=== PATIENT | male | born 1945 | race Caucasian/White ===

== ENCOUNTER 2019-07-22 06:46 | Outpatient (RCR) | payer MEDICARE, SELFPAY ==
--- NOTE | 2019-06-24 | CT_ITS ---
Radation Therapy Planning CT images; total exam DLP: 1029.40 mGy-cm MTDD
--- NOTE | 2019-07-02 13:12 | ONCRAD TMN_ITS ---
Radiation Oncology Weekly Treatment Management Patient: Geovanny James MR#: [id number] : 1945> Age: 73> Sex: Male Dictated by: Dr. Armand Caldera Date of Service: 07/02/2019 Referring Physician(s) : Primary Diagnosis: C61 - Malignant neoplasm of prostate, Diagnosed 01/16/2019 (Active) Stage X, T1c, N0, M0 Radiotherapy to date: Course: Prostate2019, Treatment Site: [id number], Ref. ID: [id number], Energy: 15X/6X, Dose/Fx (cGy): 200, #Fx: , Dose Correction (cGy): 0, Total Dose (cGy): 400, Start Date: 07/01/2019, End Date: 07/02/2019, Elapsed Days: 1 Current Complaints/Interval History: None Current Medications: Losartan Potassium, metFORMIN HCl ER (MOD), vitamin B Complex, vitamin D3. Allergies: No Known Allergies Vital Signs: Performed on 07/02/2019 12:07 PM Weight - 208 lbs, Temperature - 97.6 f, Pulse - 90, Respiration - 16, O2 Sat - 100 %, Pain - 0 and BP - 143/ 80 mm(hg)(high/). Physical Exam: Appears stable, no skin erythema or desquamation. Performance Status: 0 - Fully active, able to carry on all predisease activities without restrictions. (ECOG) Imaging: No new diagnostic imaging was performed since the last weekly treatment visit. All radiation therapy related imaging (including but not limited to kV, MV, and CBCT generated images) was reviewed. Appropriate changes, if any, were made to assure accurate target localization. Impression/Plan: Tolerating treatment well with expected side effects. Continue treatment as planned. CPT: 99354 Signed by: Dr. Armand Caldera>07/02/2019 1:09:48 PM <<Signature on File>>
--- NOTE | 2019-07-08 10:41 | ONCRAD TMN_ITS ---
Radiation Oncology Weekly Treatment Management Patient: Geovanny James MR#: [id number] : 1945> Age: 73> Sex: Male Dictated by: Dr. Michael Contreras Date of Service: 07/08/2019 Referring Physician(s) : Dr. Sin Briggs Primary Diagnosis: C61 - Malignant neoplasm of prostate, Diagnosed 01/16/2019 (Active) Stage X, T1c, N0, M0 Radiotherapy to date: Course: Prostate2019, Treatment Site: [id number], Ref. ID: [id number], Energy: 15X/6X, Dose/Fx (cGy): 200, #Fx: , Dose Correction (cGy): 0, Total Dose (cGy): 1,200, Start Date: 07/01/2019, Elapsed Days: 7 Current Complaints/Interval History: Mr. James is a little over 1 week into his course of radiation therapy. He is doing extremely well. He has not experienced any fatigue at all. He has no bowel complaints. He is on a low fiber diet. He is aware to use Imodium AD if he develops diarrhea. He has not developed any troublesome bladder symptoms. He will let us know if they develop. He is complimentary of the staff. No change in treatment plan. Current Medications: Losartan Potassium, metFORMIN HCl ER (MOD), saw [place], vitamin B Complex, vitamin D3. Allergies: No Known Allergies Vital Signs: Physical Exam: Appears stable, no skin erythema or desquamation. Performance Status: 0 - Fully active, able to carry on all predisease activities without restrictions. (ECOG) Lab: None pending in Radiation Oncology. Test performed on 04/14/2019 8:41 AM Hemoglobin A1C - 6.1 % (high) and PSA - 5.31 ng/ml (high). Imaging: No new diagnostic imaging was performed since the last weekly treatment visit. All radiation therapy related imaging (including but not limited to kV, MV, and CBCT generated images) was reviewed. Appropriate changes, if any, were made to assure accurate target localization. Impression/Plan: Tolerating treatment well with expected side effects. Continue treatment as planned. CPT: 92525 Signed by: Dr. Michael Contreras>07/08/2019 10:39:59 AM <<Signature on File>>
--- NOTE | 2019-07-16 11:32 | ONCRAD TMN_ITS ---
Radiation Oncology Weekly Treatment Management Patient: Geovanny James MR#: [id number] : 1945> Age: 73> Sex: Male Dictated by: Dr. Dennis Contreras Date of Service: 07/16/2019 Referring Physician(s) : Dr. Sin Briggs Primary Diagnosis: C61 - Malignant neoplasm of prostate, Diagnosed 01/16/2019 (Active) Stage X, T1c, N0, M0 Radiotherapy to date: Course: Prostate2019, Treatment Site: [id number], Ref. ID: [id number], Energy: 15X/6X, Dose/Fx (cGy): 200, #Fx: , Dose Correction (cGy): 0, Total Dose (cGy): 2,400, Start Date: 07/01/2019, Elapsed Days: 15 Current Complaints/Interval History: Mr. James is 2-1/2 weeks into treatment. Overall he is doing well. He has a good appetite and denies fatigue. He has had no bowel problems. He has altered his diet according to the instruction sheet. I did discuss with him that he could be less strict on his diet as long as he does not have troublesome diarrhea. He is very obsessive-compulsive and prefers to follow the diet strictly. He does not have dysuria or nocturia. Bladder function is very good at this time. No questions. Continue according to plan. Current Medications: Losartan Potassium, metFORMIN HCl ER (MOD), saw [place], vitamin B Complex, vitamin D3. Allergies: No Known Allergies Vital Signs: Performed on 07/16/2019 10:22 AM BMI - 33.047 kg/m2 (high), Height - 67.00 in, Weight - 211.0 lbs, Temperature - 97.6 f, Pulse - 73, Respiration - 18, O2 Sat - 97 %, Pain - 0, Fatigue - 0 and BP - 154/ 88 mm(hg)(high/). Physical Exam: Appears stable, no skin erythema or desquamation. Performance Status: 0 - Fully active, able to carry on all predisease activities without restrictions. (ECOG) Lab: None pending in Radiation Oncology. Test performed on 04/14/2019 8:41 AM Hemoglobin A1C - 6.1 % (high) and PSA - 5.31 ng/ml (high). Imaging: No new diagnostic imaging was performed since the last weekly treatment visit. All radiation therapy related imaging (including but not limited to kV, MV, and CBCT generated images) was reviewed. Appropriate changes, if any, were made to assure accurate target localization. Impression/Plan: Tolerating treatment well with expected side effects. Continue treatment as planned. CPT: 22108 Signed by: Dr. Michael Contreras>07/16/2019 11:31:19 AM <<Signature on File>>
== END 2019-07-22 23:59 | disposition home or self-care (01) ==
LOC: ONCMED 06:46
PROVIDERS: Family Provider Internal Medicine; PCP Internal Medicine
DX: Z51.0 Encounter for antineoplastic radiation therapy (principal); C61 Malignant neoplasm of prostate
CPT/HCPCS: 77300; 77301; 77334; 77336; 77338; 77385

== ENCOUNTER 2019-08-21 06:50 | Outpatient (RCR) | payer MEDICARE, SELFPAY ==
--- NOTE | 2019-07-29 13:51 | ONCRAD TMN_ITS ---
Radiation Oncology Weekly Treatment Management Patient: Geovanny James MR#: [id number] : 1945> Age: 73> Sex: Male Dictated by: Dr. Cesar Bardales Date of Service: 07/29/2019 Referring Physician(s) : Dr. Sin Briggs Primary Diagnosis: C61 - Malignant neoplasm of prostate, Diagnosed 01/16/2019 (Active) Stage X, T1c, N0, M0 Radiotherapy to date: Course: Prostate2019,Treatment Site: [id number], Ref. ID: [id number], Energy: 15X/6X Dose/Fx (cGy): 200, #Fx: , Dose Correction (cGy): 0, Total Dose (cGy): 4,200, Start Date: 07/01/2019, Elapsed Days: 28 Current Complaints/Interval History: Current Medications: Losartan Potassium, metFORMIN HCl ER (MOD), saw [place], vitamin B Complex, vitamin D3. Allergies: No Known Allergies Vital Signs: Performed on 07/29/2019 10:54 AM BMI - 32.797 kg/m2 (high), Height - 67.00 in, Weight - 209.4 lbs, Temperature - 97.7 f, Pulse - 66, Respiration - 18, O2 Sat - 98 %, Pain - 0 and BP - 160/ 77 mm(hg)(high/). Physical Exam: Appears stable, no skin erythema or desquamation. Performance Status: 0 - Fully active, able to carry on all predisease activities without restrictions. (ECOG) Lab: None pending in Radiation Oncology. Test performed on 04/14/2019 8:41 AM Hemoglobin A1C - 6.1 % (high) and PSA - 5.31 ng/ml (high). Imaging: No new diagnostic imaging was performed since the last weekly treatment visit. All radiation therapy related imaging (including but not limited to kV, MV, and CBCT generated images) was reviewed. Appropriate changes, if any, were made to assure accurate target localization. Impression/Plan: Tolerating treatment well with expected side effects. Continue treatment as planned. CPT: 35331 Signed by: Dr. Cesar Bardales>07/29/2019 1:50:53 PM <<Signature on File>>
--- NOTE | 2019-08-05 10:55 | ONCRAD TMN_ITS ---
Radiation Oncology Weekly Treatment Management Patient: Geovanny James MR#: [id number] : 1945> Age: 73> Sex: Male Dictated by: Dr. Cesar Bardales Date of Service: 08/05/2019 Referring Physician(s) : Dr. Sin Briggs Primary Diagnosis: C61 - Malignant neoplasm of prostate, Diagnosed 01/16/2019 (Active) Stage X, T1c, N0, M0 Radiotherapy to date: Course: Prostate2019 Treatment Site: [id number], Ref. ID: [id number], Energy: 15X/6X, Dose/Fx (cGy): 200, #Fx: , Dose Correction (cGy): 0, Total Dose (cGy): 5,200, Start Date: 07/01/2019, Elapsed Days: 35 Current Complaints/Interval History: Constitutional Denies lack of appetite, fatigue, fever and night sweats. Gastrointestinal Denies constipation and diarrhea. Has no rectal bleeding or irritation Genitourinary (M) Denies dysuria, frequency, nocturia and urgency. Current Medications: Losartan Potassium, metFORMIN HCl ER (MOD), saw [place], vitamin B Complex, vitamin D3. Allergies: No Known Allergies Vital Signs: Performed on 08/05/2019 10:34 AM BMI - 32.045 kg/m2 (high), Height - 67.00 in, Weight - 204.6 lbs, Temperature - 97.3 f, Pulse - 72, Respiration - 18, O2 Sat - 98 %, Pain - 0 and BP - 152/ 83 mm(hg)(high/). Physical Exam: Appears stable, no skin erythema or desquamation. Performance Status: 0 - Fully active, able to carry on all predisease activities without restrictions. (ECOG) Lab: None pending in Radiation Oncology. Test performed on 04/14/2019 8:41 AM Hemoglobin A1C - 6.1 % (high) and PSA - 5.31 ng/ml (high). Imaging: No new diagnostic imaging was performed since the last weekly treatment visit. All radiation therapy related imaging (including but not limited to kV, MV, and CBCT generated images) was reviewed. Appropriate changes, if any, were made to assure accurate target localization. Impression/Plan: Tolerating treatment well with expected side effects. Continue treatment as planned. CPT: 44499 Signed by: Dr. Cesar Bardales>08/05/2019 10:54:40 AM <<Signature on File>>
--- NOTE | 2019-08-13 14:31 | ONCRAD TMN_ITS ---
Radiation Oncology Weekly Treatment Management Patient: Geovanny James MR#: [id number] : 1945> Age: 74> Sex: Male Dictated by: Que Guido Date of Service: 08/13/2019 Referring Physician(s) : Dr. Sin Briggs Primary Diagnosis: C61 - Malignant neoplasm of prostate, Diagnosed 01/16/2019 (Active) Stage X, T1c, N0, M0 Radiotherapy to date: Course: Prostate2019 Treatment Site: [id number], Ref. ID: [id number], Energy: 15X/6X, Dose/Fx (cGy): 200, #Fx: , Dose Correction (cGy): 0, Total Dose (cGy): 5,400, Start Date: 07/01/2019, End Date: 08/06/2019, Elapsed Days: 36 Treatment Site: [id number], Ref. ID: [id number], Energy: 15X/6X, Dose/Fx (cGy): 200, #Fx: , Dose Correction (cGy): 0, Total Dose (cGy): 1,000, Start Date: 08/07/2019, Elapsed Days: 6 Current Complaints/Interval History: He notes weak urinary stream since last week. Only occasional nocturia. No dysuria. Bowels ok Constitutional Denies lack of appetite, fatigue, fever and night sweats. Gastrointestinal Denies constipation and diarrhea. Genitourinary (M) Complains of nocturia gets up 1 to 2 times per night. Denies dysuria but has a tingling sensation, hematuria and urgency. Has a weak urinary stream Current Medications: Losartan Potassium, metFORMIN HCl ER (MOD), saw [place], vitamin B Complex, vitamin D3. Allergies: No Known Allergies Vital Signs: Performed on 08/13/2019 10:38 AM BMI - 32.296 kg/m2 (high), Height - 67.00 in, Weight - 206.2 lbs, Temperature - 98.5 f, Pulse - 74, Respiration - 18, O2 Sat - 100 %, Pain - 0 and BP - 135/ 69 mm(hg). Physical Exam: Appears stable, no skin erythema or desquamation. Performance Status: 0 - Fully active, able to carry on all predisease activities without restrictions. (ECOG) Lab: None pending in Radiation Oncology. Test performed on 04/14/2019 8:41 AM Hemoglobin A1C - 6.1 % (high) and PSA - 5.31 ng/ml (high). Imaging: No new diagnostic imaging was performed since the last weekly treatment visit. All radiation therapy related imaging (including but not limited to kV, MV, and CBCT generated images) was reviewed. Appropriate changes, if any, were made to assure accurate target localization. Impression/Plan: Tolerating treatment well with expected side effects. Continue treatment as planned. Will add Flomax 0.4 mg after breakfast. Will call in to [facility] in [facility]. CPT: 21005 Signed by: Dr. Que Guido>08/13/2019 2:29:47 PM <<Signature on File>>
--- NOTE | 2019-08-19 14:07 | ONCRAD TMN_ITS ---
Radiation Oncology Weekly Treatment Management Patient: Geovanny James MR#: [id number] : 1945> Age: 74> Sex: Male Dictated by: Dr. Que Guido Date of Service: 08/19/2019 Referring Physician(s) : Dr. Sin Briggs Primary Diagnosis: C61 - Malignant neoplasm of prostate, Diagnosed 01/16/2019 (Active) Stage X, T1c, N0, M0 Radiotherapy to date: Course: Prostate2019, Treatment Site: [id number], Ref. ID: [id number], Energy: 15X/6X, Dose/Fx (cGy): 200, #Fx: , Dose Correction (cGy): 0, Total Dose (cGy): , 5,400, Start Date: 07/01/2019, End Date: 08/06/2019, Elapsed Days: 36 Treatment Site: [id number], Ref. ID: [id number], Energy: 15X/6X, Dose/Fx (cGy): 200, #Fx: , Dose Correction (cGy): 0, Total Dose (cGy): 1,800, Start Date: 08/07/2019, Elapsed Days: 12 Current Complaints/Interval History: No complaints. Decreased flow improved with Flomax. Now back to normal flow. No pain. Stable 1 x nocturia. Bladder full for treatment Constitutional Denies lack of appetite, fatigue, fever and night sweats. Gastrointestinal Denies constipation and diarrhea. No rectal bleeding or irritation Genitourinary (M) Complains of nocturia gets up about 1 to 2 times per night. Denies dysuria but has some tingling towards the scotum, frequency and urgency. Current Medications: Imodium A-D, losartan Potassium, metFORMIN HCl ER (MOD), saw [place], tamsulosin HCl, vitamin B Complex, vitamin D3. Allergies: No Known Allergies Vital Signs: Performed on 08/19/2019 10:31 AM BMI - 32.578 kg/m2 (high), Height - 67.00 in, Weight - 208.0 lbs, Temperature - 98.2 f, Pulse - 79, Respiration - 16, O2 Sat - 98 %, Pain - 0, Fatigue - 0 and BP - 155/ 78 mm(hg)(high/). Physical Exam: Appears stable, no skin erythema or desquamation. Performance Status: 0 - Fully active, able to carry on all predisease activities without restrictions. (ECOG) Lab: None pending in Radiation Oncology. Test performed on 04/14/2019 8:41 AM Hemoglobin A1C - 6.1 % (high) and PSA - 5.31 ng/ml (high). Imaging: No new diagnostic imaging was performed since the last weekly treatment visit. All radiation therapy related imaging (including but not limited to kV, MV, and CBCT generated images) was reviewed. Appropriate changes, if any, were made to assure accurate target localization. Impression/Plan: Tolerating treatment well with expected side effects. Continue treatment as planned. CPT: 75138 Signed by: Dr. Que Guido>08/19/2019 2:05:27 PM <<Signature on File>>
== END 2019-08-21 23:59 | disposition home or self-care (01) ==
LOC: ONCMED 06:50
PROVIDERS: Family Provider Internal Medicine; PCP Internal Medicine; Visit Provider Radiology Radiation Oncology
DX: Z51.0 Encounter for antineoplastic radiation therapy (principal); C61 Malignant neoplasm of prostate
CPT/HCPCS: 77300; 77336; 77338; 77385

== ENCOUNTER 2019-08-25 06:43 | Outpatient (RCR) | payer MEDICARE, SELFPAY | END 2019-09-21 23:59 | disposition home or self-care (01) | LOC: ONCMED 06:43 | PROVIDERS: Family Provider Internal Medicine; PCP Internal Medicine; Visit Provider Radiology Radiation Oncology | DX: Z51.0 Encounter for antineoplastic radiation therapy (principal); C61 Malignant neoplasm of prostate; I10 Essential (primary) hypertension; E11.9 Type 2 diabetes mellitus without complications | CPT/HCPCS: 77385 ==

== ENCOUNTER 2019-10-06 06:53 | Outpatient (RCR) | payer MEDICARE, SELFPAY ==
[2019-09-26 10:24] LABS: Prostate Specific Antigen 2.53 ng/mL (0-4)
--- NOTE | 2019-10-06 12:39 | ONCRAD EPV_ITS ---
Radiation Oncology Established Patient Visit Patient: Karmen MR#: [id number] : 1945> Age: 74> Sex: Male> Dictated by: Dr. Dennis Contreras Date of Service: 10/06/2019 Referring Physician(s) : Dr. Sin Briggs Diagnosis: C61 - Malignant neoplasm of prostate, Diagnosed 01/16/2019 (Active) Stage X, T1c, N0, M0 Radiotherapy to Date: Course: Prostate2019, Treatment Site: [id number], Ref. ID: [id number], Energy: 15X/6X, Dose/Fx (cGy): 200, #Fx: , Dose Correction (cGy): 0, Total Dose (cGy): 5,400, Start Date: 07/01/2019, End Date: 08/06/2019, Elapsed Days: 36 Treatment Site: [id number], Ref. ID: [id number], Energy: 15X/6X, Dose/Fx (cGy): 200, #Fx: , Dose Correction (cGy): 0, Total Dose (cGy): 2,600, Start Date: 08/07/2019, End Date: 08/25/2019, Elapsed Days: 18 Chief Complaint / History of Present Illness: Mr. James finished radiation for prostate cancer about 1-1/2 months ago. He has been doing well. He tried stopping the Flomax and had some hesitancy of urination. After restarting the Flomax, his urine pattern returned to normal. At this time he has no dysuria, hematuria, or pyuria. He has no difficulty initiating the stream and emptying the bladder. Mr. James did experience an episode of rectal grade ejaculation. He had no symptoms related to the event. He understands this may or may not continue to be his pattern. He has had no other sexual dysfunction. Mr. James denies any bowel symptoms whatsoever. Current Medications: Imodium A-D, losartan Potassium, metFORMIN HCl ER (MOD), saw [place], tamsulosin HCl, vitamin B Complex, vitamin D3. Allergies: No Known Allergies Current Complaints / Review of Systems: Constitutional - Denies lack of appetite, fatigue, fever, rigors / chills and change in weight. Eyes - Denies blurred vision. ENMT - Denies dysphagia, ear pain, mouth dryness, stomatitis and altered taste. Neck - Denies neck pain. Integumentary - Denies rash. Cardiovascular - Denies arrhythmias, chest pain and edema. Respiratory - Denies cough, dyspnea and wheezing. Gastrointestinal - Denies abdominal pain, constipation, diarrhea, heartburn / dyspepsia, hemorrhoids, melena / GI bleeding, nausea and vomiting. Genitourinary (M) - Complains of nocturia which happens occasionally. Denies dysuria, frequency, hematuria and urgency. Musculoskeletal - Complains of joint pain in the lower back from the sciatic nerve. Denies bone pain and muscle weakness. Neurologic - Denies dizziness, abnormal gait and headaches. Endocrine - Complains of Type 2 diabetes. Denies thyroid disease. Hematologic/Lymphatic - Denies tender or enlarged lymph nodes.. Vital Signs: Performed on 10/06/2019 11:27 AM BMI - 31.888 kg/m2 (high), Height - 67.00 in, Weight - 203.6 lbs, Temperature - 97.6 f, Pulse - 71, Respiration - 18, O2 Sat - 98 % and BP - 121/ 68 mm(hg). Physical Exam: General: Alert and oriented x 3. No acute distre NECK: Supple without supraclavicular or jugular lymphadenopathy. LUNGS: Clear to auscultation bilaterally without rales, rhonchi or wheeze. HEART: Regular rate and rhythm, normal S1 and S2 without murmur, gallop or rub. ABDOMEN: Soft, nontender, nondistended without masses or organomegaly. [place] sounds are present. Performance Status: KPS: 8/10 Lab: PSA 09/26/2019 2.53. Hemoglobin A1C - 6.1 % (high) and PSA - 5.31 ng/ml (high). Pathology: Primary, c61 - malignant neoplasm of prostate, Diagnosed 01/16/2019 (active) stage x, t1c, n0, m0. Impression: Excellent response based on his recent PSA result. I discussed the PSA will likely continue to decline and hit its yassine in 9 to 12 months. He has very minimal side effects from treatment. We discussed gradually decreasing the Flomax by skipping days during the week rather than abruptly stopping it. I told him some people are able to get off the drug entirely and others need it every day or at least a few days per week. He went to the [facility] website and understands the retrograde ejaculation is not indicative of any particular problem. He does not seem to be concerned about it at this time. I discussed continuing follow-up every 6 months with a PSA obtained each time. He is in agreement with that. We will call in a [employer]-film refill. Signed by: 10/06/2019 12:37:36 PM <<Signature on File>> Time spent with patient: CPT Code: CPT Code:
== END 2019-10-21 23:59 | disposition home or self-care (01) ==
LOC: ONCMED 06:53
PROVIDERS: Radiology Radiation Oncology; PCP Internal Medicine; Visit Provider Specialist
DX: C61 Malignant neoplasm of prostate (principal); I10 Essential (primary) hypertension; E11.9 Type 2 diabetes mellitus without complications
CPT/HCPCS: 84153

== ENCOUNTER 2020-04-02 10:11 | Outpatient (CLI) | payer MEDICARE, SELFPAY ==
[2020-04-02 11:27] LABS: Prostate Specific Antigen 0.819 ng/mL (0-4)
== END 2020-04-02 10:12 | disposition home or self-care (01) ==
LOC: ONCMED 10:14
PROVIDERS: PCP Internal Medicine; Visit Provider Radiology Radiation Oncology
DX: C61 Malignant neoplasm of prostate (principal)
CPT/HCPCS: 36415; 84153

== ENCOUNTER 2020-04-09 08:03 | Outpatient (CLI) | payer MEDICARE, SELFPAY ==
--- NOTE | 2020-04-09 09:27 | ONCRAD EPV_ITS ---
Radiation Oncology Established Patient Note Patient: Geovanny James MR#: [id number] : 1945 Attending Physician: Geovanny Martins M.D. Date of Service: 04/09/2020 Geovanny James returned to my office this morning for a routinely scheduled follow-up appointment. He completed prostate radiotherapy in August 2019 for the management of his clinical stage IIB (T1cN0) adenocarcinoma of the prostate. ???His pretreatment PSA was 5.2 ng/mL. ???A TRUS biopsy identified a Brenda???s score of 7 (3+4). Radiotherapy was administered between the dates of July 01, 2019 through August 25, 2019. A prescribed dose of 80 Gy was delivered in 40 fractions encompassing 54 elapsed days. On review of systems, he does not describe any lower urinary tract symptoms (dysuria) nor did he report any musculoskeletal complaints such as bone pain. On physical examination, the patient weighed 205 pounds. The temperature is 98.21???F. His blood pressure was elevated at 173/80 mmHg. The pulse was 76 bpm and his respiratory rate was 18 breaths per minute. There was no tenderness to deep palpation along the axial skeleton. In summary, Geovanny James returned for a routine follow-up appointment. A PSA obtained in prior to this appointment was 0.82 ng/mL. He has no evidence of biochemical failure and will continue to see his PCP as scheduled. Signed by: Dr. Geovanny Martins 04/09/2020 9:25:32 AM
== END 2020-04-09 08:04 | disposition home or self-care (01) ==
LOC: ONCMED 08:06
PROVIDERS: PCP Internal Medicine; Visit Provider Radiology Radiation Oncology
DX: Z08 Encounter for follow-up examination after completed treatment for malignant neoplasm (principal); Z85.46 Personal history of malignant neoplasm of prostate; Z92.3 Personal history of irradiation
CPT/HCPCS: 99213

== ENCOUNTER → 2022-06-19 13:26 | Outpatient (BNVA) | payer MEDICARE, SELFPAY | PROVIDERS: PCP Internal Medicine; Visit Provider Specialist | DX: G30.9 Alzheimer's disease, unspecified (principal); F02.C4 Dementia in other diseases classified elsewhere, severe, with anxiety | CPT/HCPCS: 96116; 99205 ==

== ENCOUNTER 2022-09-19 21:08 | Inpatient (IN) | payer MEDICARE, SELFPAY ==
[2022-09-19 21:09] VITALS: BP 190/98; PULSE 109; RESP 16; TEMP 36.7; O2SAT 94; BMI 23.5
--- NOTE | 2022-09-19 21:16 | W.ED.AMS ---
HPI - Altered Mental Status General: Chief Complaint: Fall Stated Complaint: AMS Time Seen by Provider: 09/19/22 21:15 Limitations: altered mental status History of Present Illness: Mr. James is a 77-year-old gentleman with history of dementia and diabetes as well as per chart review hypertension and hyperlipidemia presented to the emergency department for altered mental status. Apparently was found at home on the floor by neighbors with unknown exact circumstances or downtime. He was last seen definitively normal 2 days ago. The patient himself does not know exactly what happened and does not recall being stuck on the ground. He denies medical concerns. History otherwise limited by mental state. Review of Systems General: Reports: ROS unobtainable due to mental status PFSH ED PFSH: Medical History (Updated 09/24/22 @ 00:01 by MARBIN Casas) Diabetic acidosis, type II Prostate cancer Family History Mother Cancer Brother Cancer lung Social History Second hand smoke exposure: No Smoking risk assessment/counseling performed?: No Alcohol intake: never Adopted: No Household members: significant other and children Physical Exam Const: COMMON NORMALS: alert GENERAL APPEARANCE: cooperative and well developed HENMT: COMMON NORMALS: normocephalic and atraumatic HEAD & SCALP: normocephalic and atraumatic THROAT: posterior oropharynx normal OTHER: Dry mucous membranes. No blanco signs or raccoon eyes. No hemotympanum. No otorrhea or rhinorrhea. Jaw alignment normal. Dentition baseline. No obvious bony step-offs. No septal hematoma. No evidence of ocular entrapment. Eye: COMMON NORMALS: conjunctivae normal CONJUNCTIVA: Yes conjunctivae normal SCLERA: sclerae normal Neck/C-Spine: COMMON NORMALS: supple GENERAL: Yes trachea midline Resp: COMMON NORMALS: normal respiratory effort EFFORT & INSPECTION: Yes able to speak in complete sentences Cardio: COMMON NORMALS: regular rhythm RATE: tachycardic RHYTHM: regular rhythm GI: COMMON NORMALS: Soft to palpation PALPATION: Yes Soft to palpation, No Tenderness to palpation present (GI), No Guarding due to palpation present (GI) and No Rigid due to palpation Extremity: GENERAL: Yes normal exam except as noted and No edema Neuro: COMMON NORMALS: moves all extremities SENSORIUM/ORIENTATION: Yes alert and Yes Orientation impaired Psych: COMMON NORMALS: mental status grossly normal MEMORY/COGNITION: Yes memory grossly impaired Course Vital Signs: Vital signs: Vital Signs Temperature 98.2 F 09/23/22 20:25 Pulse Rate 71 09/23/22 20:25 Respiratory Rate 17 09/23/22 20:25 Blood Pressure 136/73 09/23/22 20:25 Pulse Oximetry 94 09/23/22 20:25 Oxygen Delivery Me thod Room Air 09/23/22 12:00 Oxygen Flow Rate 4 09/21/22 20:00 MDM - Altered Mental Status Medical Decision Making 77-year-old gentleman presenting with fall and unknown downtime with hyperglycemia. History limited by likely baseline dementia. Head to toe exam performed. Patient is nontoxic. EKG demonstrates sinus tachycardia with right bundle branch block. Labs with no significant hematologic abnormality. Metabolic panel with hyperglycemia and elevated lactic acid as well as mild transaminitis and trace elevation in bilirubin. CK is elevated or negative range 2-hour delta troponin. Urinalysis pending. pH is compensated. CT head and cervical spine negative for acute traumatic injury. Chest x-ray negative for lobar consolidation or pneumothorax. Given laboratory abnormalities further biliary imaging is appropriate and somewhat indeterminant findings though lower clinical suspicion given physical exam and reported clinical history with limitations. Patient treated initially with antibiotics, also treated with fluids. After discussion with hospitalist service most likely etiology of metabolic changes more has to do starvation ketosis and other factors and not DKA. We will plan to treat with push/subcu insulin. The results of ED evaluation were discussed with the patient including plan for admission due to requirement for level of care not available if discharged to prevent significant worsening/deterioration. Patient agreeable with plan. Discussed with hospitalist service who was agreeable to admit patient. Medical Records I reviewed the patient's medical records. Lab Data I reviewed the patient's lab results. 09/23/22 04:15 09/23/22 04:15 Radiology Impressions Cervical Spine CT 09/19/22 21:27 IMPRESSION: No acute abnormality of the cervical spine demonstrated. Chest X-Ray 09/19/22 21:27 IMPRESSION: No obvious acute consolidation. Suboptimal lung base assessment. Followup including lateral view may be obtained if clinically indicated. Head CT 09/19/22 21:27 IMPRESSION: No acute intracranial abnormality demonstrated. Gallbladder Ultrasound 09/19/22 23:15 IMPRESSION: 1. Gallbladder contains a 2.2 cm mobile calculus. The gallbladder wall is not well demonstrated, but may be thickened. There is no pericholecystic fluid demonstrated. No biliary dilatation demonstrated. 2. No focal hepatic abnormality demonstrated. Lumbar Spine X-Ray 09/20/22 06:04 IMPRESSION: 1. No acute fracture or malalignment. 2. Moderate degenerative changes. Straightening, slight dextroscoliosis. Shoulder X-Ray 09/20/22 06:04 IMPRESSION: 1. Degenerative changes. No fracture or dislocation. Thoracic Spine X-Ray 09/20/22 06:04 IMPRESSION: 1. No fracture or malalignment. Mild degenerative change. Chest CTA 09/20/22 14:41 IMPRESSION: 1. No pulmonary embolism. 2. LEFT lower lobe atelectasis with resultant volume loss in the LEFT thorax. 3. Cholelithiasis. Large stone at the neck of the gallbladder. May be an entrapped stone. Consider surgical evaluation. Hepatobiliary Scan Nuclear Medicine 09/22/22 10:00 IMPRESSION: 1. No gallbladder emptying at 52 minutes compatible with gallbladder dysfunction. Recommend correlation for chronic cholecystitis. 2. No evidence of acute cholecystitis. Normal filling of the gallbladder at 50 minutes. 3. Normal common bile duct and small bowel activity demonstrated. Laboratory Results WBC 5.8 10^3/uL (4.0-10.0) 09/19/22 21:38 RBC 4.58 10^6/uL (4.1-5.3) 09/19/22 21:38 Hgb 14.2 g/dL (11.7-16.6) 09/19/22 21:38 Hct 41.0 % (42.0-52.0) L 09/19/22 21:38 MCV 89.5 fl (80-94) 09/19/22 21:38 MCH 31.0 pg (28.0-34.0) 09/19/22 21: MCHC 34.6 g/dL (30.0-36.0) 09/19/22 21: RDW 13.4 % (12.1-15.1) 09/19/22 21:38 Plt Count 207 10^3/cmm (130-400) 09/19/22 21:38 MPV 9.1 fL (7.4-10.4) 09/19/22 21:38 Neut % (Auto) 87.1 % 09/19/22 21:38 Lymph % (Auto) 4.5 % 09/19/22 21:38 Finney % (Auto) 8.0 % 09/19/22 21:38 Eos % (Auto) 0.0 % 09/19/22 21:38 Baso % (Auto) 0.2 % 09/19/22 21:38 Neut # (Auto) 5.02 10^3/uL (1.8-7.7) 09/19/22 21:38 Lymph # (Auto) 0.3 10^3/uL (0.8-4.8) L 09/19/22 21:38 Finney # (Auto) 0.5 10^3/uL (0.2-0.9) 09/19/22 21:38 Eos # (Auto) 0.0 10^3/uL (0.0-0.8) 09/19/22 21: Baso # (Auto) 0.0 10^3/uL (0.0-0.1) 09/19/22 21: Nucleated RBC % (auto) 0 % 09/19/22 21: Nucleated RBCs # 0.0 /100WBC 09/19/22 21:38 Specimen Type Arterial 09/19/22 22:31 Sample Site Radial, left 09/19/22 22:31 ABG pH 7.40 (7.35-7.45) 09/19/22 22:31 ABG pCO2 29.2 mmHg (35-45) L 09/19/22 22:31 ABG pO2 65.9 mmHg (80.0-100.0) L 09/19/22 22:31 ABG HCO3 17.9 mmol/L (22-26) L 09/19/22 22:31 ABG Base Excess -5.7 mmol/L (-2.0-2.0) L 09/19/22 22:31 Abhishek Test Pos 09/19/22 22:31 Hematocrit 43.1 % (42-52) 09/19/22 22:31 O2 Delivery Device Room air 09/19/22 22:31 Front Desk Team Member ID [email or web address] 09/19/22 22:31 Sodium 146 mmol/L (136-145) H 09/19/22 21:38 Potassium 3.6 mmol/L (3.5-5.1) 09/19/22 21:38 Chloride 106 mmol/L (98-107) 09/19/22 21:38 Carbon Dioxide 20 mmol/L (22-29) L 09/19/22 21:38 Anion Gap 23.6 (5-19) H 09/19/22 21:38 BUN 38 mg/dL (8-23) H 09/19/22 21:38 Creatinine 1.2 mg/dL (0.7-1.2) 09/19/22 21:38 GFR Calculation Not Reportable 09/19/22 21:38 Glucose 382 mg/dL (65-115) H 09/19/22 21:38 POC Glucose 350 mg/dL (70-110) H 09/19/22 22:50 Calculated Osmolality 327 mOsm/kg (285-295) H 09/19/22 21:38 Lactic Acid 2.5 mmol/L (0.5-2.2) H 09/19/22 21:38 Calcium 9.6 mg/dL (8.5-10.5) 09/19/22 21:38 Magnesium 1.8 mg/dL (1.7-2.3) 09/19/22 21:38 Total Bilirubin 1.4 mg/dL (0.15-1.2) H 09/19/22 21:38 AST 50 U/L (0-40) H 09/19/22 21:38 ALT 44 U/L (0-41) H 09/19/22 21:38 Alkaline Phosphatase 63 U/L (40-130) 09/19/22 21:38 Creatine Kinase 1137 U/L (39-308) H* 09/19/22 21:38 Troponin T Baseline 34 ng/L (0-15) H 09/19/22 21:38 Troponin T 120 Minute 33.18 ng/L (0-15) H 09/19/22 23:52 Delta Troponin T -0.82 ABS# (0-10) L 09/19/22 23:52 C-Reactive Protein 282.5 mg/L (0.0-4.9) H 09/19/22 21:38 NT-Pro-B Natriuret Pep 784 pg/mL (0-450) H 09/19/22 21:38 Total Protein 7.0 g/dL (6.6-8.7) 09/19/22 21:38 Albumin 3.8 g/dL (3.5-5.2) 09/19/22 21:38 Globulin 3.2 g/dL (1.3-4.6) 09/19/22 21:38 Lipase 9 U/L (13-60) L 09/19/22 21:38 Procalcitonin 2.38 ng/mL (0-0.5) H 09/19/22 21:38 TSH 0.53 uIU/mL (0.27-4.20) 09/19/22 21:38 Salicylates < 0.3 mg/dL (3-10) L 09/19/22 21:38 Acetaminophen < 5.0 ug/mL (10-30) L 09/19/22 21:38 Ethyl Alcohol < 10 mg/dL (0-10) 09/19/22 21:38 Serum Ketones Positive (Negative) H 09/19/22 21:38 Discharge Plan Discharge Patient Disposition: Admitted As Inpatient Admit Provider: Shanelle Yadav Clinical Impression: Altered mental status, Rhabdomyolysis, Abnormal metabolic function Condition: Stable Discharge Diet: Diabetic Coding Level of Care Code ED General Machine Operator for Robert Rodarte
--- NOTE | 2022-09-19 21:27 | CTR_ITS ---
PROCEDURE INFORMATION: Exam: CT Cervical Spine Without Contrast Exam date and time: 09/19/2022 9:45 PM Age: 77 years old Clinical indication: Injury or trauma; Fall; Blunt trauma; Additional info: Possible fall, AMS TECHNIQUE: Imaging protocol: Computed tomography of the cervical spine without contrast. Radiation optimization: All CT scans at this facility use at least one of these dose optimization techniques: automated exposure control; mA and/or kV adjustment per patient size (includes targeted exams where dose is matched to clinical indication); or iterative reconstruction. REPORTING DATA: Count of CT and Cardiac NM exams in prior 12 months: This patient has received 0 known CTs and 0 known cardiac nuclear medicine studies in the 12 months prior to the current study. COMPARISON: CR (CHEST, ) 09/19/2022 9:41 PM RADIATION DOSE METRICS: Total DLP (mGy-cm): 216 FINDINGS: Bones/joints: Vertebral body heights are preserved. No compression fractures are noted. Vertebral alignment is physiologic. Intervertebral disc space heights are preserved. No large disc protrusions are identified. No severe cervical spinal canal stenosis noted at any level. Lungs: The lung apices are unremarkable. Pleural spaces: No apical pneumothorax demonstrated. Soft tissues: Paraspinous soft tissues appear unremarkable. CT/CT cervical spin wo con* [id number] IMPRESSION: No acute abnormality of the cervical spine demonstrated.
--- NOTE | 2022-09-19 21:27 | CTR_ITS ---
PROCEDURE INFORMATION: Exam: CT Head Without Contrast Exam date and time: 09/19/2022 9:45 PM Age: 77 years old Clinical indication: Altered mental status/memory loss; Additional info: AMS, possible fall TECHNIQUE: Imaging protocol: Computed tomography of the head without contrast. Radiation optimization: All CT scans at this facility use at least one of these dose optimization techniques: automated exposure control; mA and/or kV adjustment per patient size (includes targeted exams where dose is matched to clinical indication); or iterative reconstruction. REPORTING DATA: Count of CT and Cardiac NM exams in prior 12 months: This patient has received 0 known CTs and 0 known cardiac nuclear medicine studies in the 12 months prior to the current study. COMPARISON: No relevant prior studies available. RADIATION DOSE METRICS: Total DLP (mGy-cm): 1240.55 FINDINGS: Brain: Age related parenchymal volume loss noted. There is decreased attenuation of the periventricular white matter, consistent with moderate microangiopathic chronic white matter disease. No parenchymal edema identified. No intracranial hemorrhage noted. Cerebral ventricles: No ventriculomegaly. Paranasal sinuses: Mucoperiosteal thickening noted in the ethmoid and sphenoid sinuses. No air-fluid levels in the paranasal sinuses. Mastoid air cells: Unremarkable as visualized. No mastoid effusion. Bones/joints: Unremarkable. No acute fracture. Soft tissues: Unremarkable. CT/CT head wo con* [id number] IMPRESSION: No acute intracranial abnormality demonstrated.
--- NOTE | 2022-09-19 21:27 | XRR_ITS ---
PROCEDURE INFORMATION: Exam: XR Chest Exam date and time: 09/19/2022 9:41 PM Age: 77 years old Clinical indication: Other: AMS; Additional info: Fall, AMS TECHNIQUE: Imaging protocol: Radiologic exam of the chest. Views: 1 view. COMPARISON: No relevant prior studies available. FINDINGS: Lungs: The lung bases are suboptimally assessed due to technique however the upper lungs are clear of focal consolidation. Pleural spaces: Unremarkable. No pleural effusion. No pneumothorax. Heart/Mediastinum: Cardiac silhouette appears normal in size. No obvious vascular congestion. Bones/joints: No acute osseous findings. Other findings: Single view was submitted. XR/XR chest 1V portable [id number] IMPRESSION: No obvious acute consolidation. Suboptimal lung base assessment. Followup including lateral view may be obtained if clinically indicated.
--- NOTE | 2022-09-19 21:28 | ECG_ITS ---
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 Measurements Intervals [place] Rate: 117 P: 50 AK: 151 QRS: 57 QRSD: 146 T: 19 QT: 360 QTc: 503 Interpretive Statements SINUS TACHYCARDIA RIGHT BUNDLE BRANCH BLOCK [120+ ms QRS DURATION, UPRIGHT V1, 40+ ms S IN I/aVL/V4/V5/V6] No previous ECG available for comparison Electronically Signed On 09-19-2022 22:40:04 CDT by Aziza Ayala M.D. [id number]
[2022-09-19 21:52] LABS: Basophils % 0.2 %; Hemoglobin 14.2 g/dL (11.7-16.6); Lymphocytes # 0.3 10^3/uL (0.8-4.8); Lymphocytes % 4.5 %; Mean Corpuscular HGB Conc 34.6 g/dL (30.0-36.0); Mean Corpuscular Volume 89.5 fl (80-94); Mean Platelet Volume 9.1 fL (7.4-10.4); Monocytes # 0.5 10^3/uL (0.2-0.9); Neutrophils # 5.02 10^3/uL (1.8-7.7); Neutrophils % 87.1 %; Nucleated Red Blood Cells % 0 %; Platelet Count 207 10^3/cmm (130-400); Red Blood Count 4.58 10^6/uL (4.1-5.3); Red Cell Distribution Width 13.4 % (12.1-15.1); White Blood Count 5.8 10^3/uL (4.0-10.0)
[2022-09-19 22:07] LABS: Ketone (Acetest) Serum Positive (Negative)
[2022-09-19 22:09] LABS: Troponin(5th) Baseline 34 ng/L (0-15)
[2022-09-19 22:19] LABS: NT Pro B Type Natriuretic Pept 784 pg/mL (0-450); Procalcitonin 2.38 ng/mL (0-0.5); Thyroid Stimulating Hormone 0.53 uIU/mL (0.27-4.20)
[2022-09-19 22:31] LABS: Alanine Aminotransferase 44 U/L (0-41); Albumin Level 3.8 g/dL (3.5-5.2); Alkaline Phosphatase 63 U/L (40-130); Anion Gap 23.6 (5-19); Aspartate Amino Transferase 50 U/L (0-40); Blood Urea Nitrogen 38 mg/dL (8-23); C Reactive Protein 282.5 mg/L (0.0-4.9); Calcium 9.6 mg/dL (8.5-10.5); Carbon Dioxide 20 mmol/L (22-29); Chloride 106 mmol/L (98-107); Globulin 3.2 g/dL (1.3-4.6); Glucose 382 mg/dL (65-115); Magnesium 1.8 mg/dL (1.7-2.3); Osmolality Calculated 327 mOsm/kg (285-295); Potassium 3.6 mmol/L (3.5-5.1); Sodium 146 mmol/L (136-145); Total Bilirubin 1.4 mg/dL (0.15-1.2)
[2022-09-19 22:43] LABS: ABG PCO2 29.2 mmHg (35-45); Arterial Blood Gas Hematocrit 43.1 % (42-52); Base Excess ABG -5.7 mmol/L (-2.0-2.0); Blood Gas Allen Test Pos; Blood Gas Sample Site Radial, left; Blood Gas Sample Type Arterial; HCO3 ABG 17.9 mmol/L (22-26); Oxygen Device ROOM AIR; PO2 ABG 65.9 mmHg (80.0-100.0)
[2022-09-19 22:45] VITALS: BP 183/98; PULSE 121; RESP 17; O2SAT 93
[2022-09-19 22:50] LABS: Slide Review Slide Review Perform
[2022-09-19 22:53] LABS: Acetaminophen < 5.0 ug/mL (10-30); Alcohol Level < 10 mg/dL (0-10); Salicylate < 0.3 mg/dL (3-10)
[2022-09-19 22:53] LABS: Glucose Point of Care 350 mg/dL (70-110)
[2022-09-19 22:55] LABS: Creatine Phosphokinase 1137 U/L (39-308)
--- NOTE | 2022-09-19 23:15 | USR_ITS ---
PROCEDURE INFORMATION: Exam: US Abdomen, Limited; Right Upper Quadrant Exam date and time: 09/19/2022 11:25 PM Age: 77 years old Clinical indication: Other: Altered mental status, dementia, neighbors found him down on the floor, uncertain how long, generalized illness, elevated t bili, transaminitis TECHNIQUE: Imaging protocol: Real time ultrasound of the abdomen with image documentation. Limited exam focused on the right upper quadrant. COMPARISON: No relevant prior studies available. FINDINGS: Liver: The liver is unremarkable in appearance. Gallbladder: Gallbladder contains a 2.2 cm mobile calculus. The gallbladder wall is not well demonstrated, but may be thickened. There is no pericholecystic fluid demonstrated. Biliary ducts: No biliary dilatation. The common duct measures 4.9 mm in diameter. Pancreas: The pancreas is obscured by overlying intestinal gas. Right kidney: Unremarkable. No mass. No hydronephrosis. Aorta: The abdominal aorta is atherosclerotic, without evidence of aneurysm. Inferior vena cava: The intrahepatic portion of the inferior vena cava is unremarkable. Portal venous: Portal vein is patent with normal flow direction demonstrated. US/US gall bladder [id number] IMPRESSION: 1. Gallbladder contains a 2.2 cm mobile calculus. The gallbladder wall is not well demonstrated, but may be thickened. There is no pericholecystic fluid demonstrated. No biliary dilatation demonstrated. 2. No focal hepatic abnormality demonstrated.
--- NOTE | 2022-09-19 23:28 | ECG_ITS ---
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 Measurements Intervals [place] Rate: 142 P: 78 [place]: 110 QRS: 71 QRSD: 131 T: 67 QT: 312 QTc: 480 Interpretive Statements SINUS TACHYCARDIA WITH SHORT CA INTERVAL, POSSIBLE ATRIAL FLUTTER RIGHT BUNDLE BRANCH BLOCK [120+ ms QRS DURATION, UPRIGHT V1, 40+ ms S IN I/aVL/V4/V5/V6] ST DEVIATION AND MARKED T-WAVE ABNORMALITY, CONSIDER ANTEROLATERAL ISCHEMIA [-0.5+ mV T-WAVE IN I/aVL/V3-V6] Compared to ECG 09/19/2022 21:38:29 T-wave abnormality now present Possible ischemia now present Electronically Signed On 09-20-2022 8:21:56 CDT by Aziza Ayala M.D. [email or web address]
[2022-09-19 23:35] LABS: Lactic Sepsis W/Reflex 2.5 mmol/L (0.5-2.2); Lipase 9 U/L (13-60)
[2022-09-19 23:45] VITALS: BP 113/59; PULSE 138; RESP 18; O2SAT 91
[2022-09-20] VITALS (56 sets, daily range): BP systolic 134–199; BP diastolic 73–108; PULSE 81–134; RESP 16–36; TEMP 36.8–37.3; O2SAT 88–99; BMI 25.3
[2022-09-20] MEDS: piperacillin-tazobactam 4.5 GM in sodium chloride 0.9% (plus) 50 ML IV (00:06)
[2022-09-20] MEDS: sodium chloride 0.9% 1,000 ML 999 ML IV (00:07)
[2022-09-20 00:16] LABS: Troponin 5 2HR 33.18 ng/L (0-15)
[2022-09-20 00:25] LABS: Troponin 5 2HR Delta -0.82 ABS# (0-10)
[2022-09-20] MEDS: dilTIAZem 5 mg/mL SDV 5 mL 10 MG IVP (00:35)
[2022-09-20] MEDS: insulin regular-human 100 units/1 mL 10 UNIT IVP (01:06)
[2022-09-20 01:10] LABS: Reflex Lactate Order REFLEX LACTIC ORDERD
[2022-09-20 02:09] LABS: Bilirubin Urine Neg (Negative); Blood Urine 3+ (Negative); Glucose Urine UA 4+ (Normal); Ketones Urine 2+ (Negative); Leukocyte Esterase Urine Negative (Negative); Nitrate Urine Negative (Negative); Urine Appearance Clear (CLEAR); Urine Color Yellow (Yellow); Urobilinogen Urine Norm (Negative); pH Urine 5 (5-7)
[2022-09-20 02:10] LABS: Add Urine Culture? No; Add Urine Microscopic? YES; Bacteria Urine TRACE /hpf; Hyaline Casts Urine RARE /lpf; Protein Urine 1+ (Negative); RBC Urine 0-4 /hpf (0-2); Squamous Epithelial Cell Urine 0-4 /hpf (0-5); WBC Urine 0-4 /hpf (0-5)
[2022-09-20 03:02] LABS: Glucose Point of Care 215 mg/dL (70-110)
[2022-09-20 03:22] LABS: Troponin 5 6HR 39.02 ng/L (0-15)
[2022-09-20 03:24] LABS: Troponin 5 6HR Delta 5.02 ng/L (0-12)
[2022-09-20 03:25] LABS: Lactic Acid level (Lactate) 3.1 mmol/L (0.5-2.2)
--- NOTE | 2022-09-20 04:26 | ECG_ITS ---
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 Measurements Intervals [place] Rate: 110 P: 80 [place]: 140 QRS: 47 QRSD: 130 T: 74 QT: 363 QTc: 493 Interpretive Statements SINUS TACHYCARDIA RIGHT BUNDLE BRANCH BLOCK [120+ ms QRS DURATION, UPRIGHT V1, 40+ ms S IN I/aVL/V4/V5/V6] ST DEVIATION AND MARKED T-WAVE ABNORMALITY, CONSIDER ANTEROLATERAL ISCHEMIA [-0.5+ mV T-WAVE IN I/aVL/V3-V6] Compared to ECG 09/20/2022 00:02:48 No significant changes Electronically Signed On 09-20-2022 8:19:17 CDT by Aziza Ayala M.D. [id number]
--- NOTE | 2022-09-20 06:04 | XR_ITS ---
WS: [id number] Exam: XR lumbar spine 2-3V* [id number] Date/Time of Exam: 09/20/2022 6:53 AM Reason For Exam: evalute for fractures No acute fracture or dislocation. Degenerative disc changes and spondylosis at all levels. Facet DJD at L4-5 and L5-S1. Slight dextroscoliosis. There is straightening. 8 mm degenerative retrolisthesis o f L3 on L4. Aortoiliac atherosclerosis. Bony changes in the pelvis to suggest diffuse idiopathic skel etal hyperostosis. XR/XR lumbar spine 2-3V* [id number] IMPRESSION: 1. No acute fracture or malalignment. 2. Moderate degenerative changes. Straightening, slight dextroscoliosis.
--- NOTE | 2022-09-20 06:04 | XR_ITS ---
WS: [id number] Exam: XR thoracic spine 2V [id number] Date/Time of Exam: 09/20/2022 6:53 AM Reason For Exam: evaluate for fractures No acute fracture or dislocation. Mild spondylosis. No significant scoliosis noted. Paraspinal soft t issues are unremarkable. XR/XR thoracic spine 2V [id number] IMPRESSION: 1. No fracture or malalignment. Mild degenerative change.
--- NOTE | 2022-09-20 06:04 | XR_ITS ---
WS: [id number] Exam: XR shoulder RT min 2V* [id number] Date/Time of Exam: 09/20/2022 6:53 AM Reason For Exam: evaluet for fracture No acute fracture or dislocation. Degenerative change of the glenohumeral joint and AC joint. Mild horn bacromial bone spurring. Normal soft tissues. XR/XR shoulder RT min 2V* [id number] IMPRESSION: 1. Degenerative changes. No fracture or dislocation.
[2022-09-20 06:06] LABS: Alanine Aminotransferase 43 U/L (0-41); Albumin Level 3.6 g/dL (3.5-5.2); Alkaline Phosphatase 57 U/L (40-130); Anion Gap 20.9 (5-19); Aspartate Amino Transferase 55 U/L (0-40); Blood Urea Nitrogen 38 mg/dL (8-23); Calcium 9.7 mg/dL (8.5-10.5); Carbon Dioxide 20 mmol/L (22-29); Chloride 113 mmol/L (98-107); Creatinine Clr Calc Pharmacy 54.9284; Glucose 223 mg/dL (65-115); Osmolality Calculated 328 mOsm/kg (285-295); Sodium 151 mmol/L (136-145); Total Bilirubin 1.2 mg/dL (0.15-1.2); Total Protein 6.6 g/dL (6.6-8.7)
--- NOTE | 2022-09-20 06:07 | P.HP_ITS ---
Providers/Chief Complaint Admitting Physician: Shanelle Yadav MD Primary Care Provider: Erendira Jalloh MD Chief Complaint: AMS History of Present Illness Geovanny James is a 77 year old male with a past medical history of advancing dementia was brought to the emergency room today with AMS. Patient is unable to contribute to any significant history. Mainly obtained by talking to son. At baseline patient lives with his son, is able to ambulate, but 3 weeks ago fell out of bed, has had issues with advancing dementia over the past several months for which she visited with neurology in May 2022. He needs assistance with several of his daily activities. He is unlikely to be able to fix a meal by himself however is able to self-feed when food is arranged for him. He is also able to take his pills from a pillbox at a baseline. He was last seen in his normal state 1 week ago on Sunday when his son left to go to [place]. He had been talking to his dad every day and last spoke to him on Sunday. He seemed to be his usual self until Sunday. Thereafter son was unable to reach him and sent the neighbor over to check on him. Mr. James was found down on the floor, confused, unable to answer any questions meaningfully, neighbor reported that he had not taken any of his medications. He was extremely dehydrated. Uncertain if he fell. Patient is unable to contribute in any meaningful way, answers yes to all questions. Not known if he had recently been having any fever chills cough etc. Review of Systems General: Reports: ROS unobtainable due to medical condition and ROS unobtainable due to mental status Medications/Allergies Home Medications Medication Instructions Recorded Confirmed Last Taken Type atorvastatin 40 mg tablet 40 mg PO DAILY 06/19/22 06/19/22 Unknown History losartan 100 mg tablet 100 mg PO DAILY 06/19/22 06/19/22 Unknown History metformin 1,000 mg tablet 1,000 mg PO BID 06/19/22 06/19/22 Unknown History memantine 10 mg tablet See Rx Instructions .Route 09/07/22 Unknown Rx .COMPLEX #60 tabs Allergies Allergy/AdvReac Type Severity Reaction Status Date / Time bee venom protein (honey bee) Allergy Unknown Verified 09/20/22 05:55 spider venom Allergy Unknown Verified 09/20/22 05:55 PFSH Acute PFSH: Medical History (Updated 09/20/22 @ 06:32 by Shanelle Yadav MD) Diabetic acidosis, type II Prostate cancer Family History Mother Cancer Brother Cancer lung Social History Second hand smoke exposure: No Smoking risk assessment/counseling performed?: No Alcohol intake: never Adopted: No Household members: significant other and children Vitals/I&O/Wt Last Vital Signs Temp 98.4 F 09/20/22 02:37 Pulse 112 H 09/20/22 05:15 Resp 30 H 09/20/22 04:15 BP 148/93 09/20/22 05:15 Pulse Ox 93 09/20/22 05:15 O2 Del Method Nasal Cannula 09/20/22 02:30 O2 Flow Rate 2 09/20/22 01:45 09/19/22 09/19/22 09/20/22 14:59 22:59 06:59 Intake Total 850 / 850 Balance 850 / 850 Weight last 48 hrs Weight 73.482 kg Weight 68.039 kg Physical Exam Narrative: General: No acute distress, significantly dehydrated, dry mucous membranes, dry parched skin AO x1 HEENT: PERRLA, pupils bilaterally equal and reactive, pallors not present Chest: Normal vesicular breath sounds, no added sounds, equal good air entry bilaterally CVS: S1-S2 regular, no murmurs, no tachycardia, no gallops, no rubs Abdomen: Soft, nontender, no organomegaly, bowel sounds present Neuro: Moves all extremities while laying in bed though not to command, moans in pain with any movement, particularly appears to have pain over the right shoulder. Extremities: Multiple small scrapes and bruises seen all over the body in various stages of healing. No predominant ulcer. Urinary Catheter Management: Smith: Cath Placed During This Visit: yes Urinary Catheter Date of Insertion: 09/20/22 Urinary Catheter Time of Insertion: 00:12 Data 09/19/22 21:38 09/20/22 02:56 Micro: Microbiology 09/19/22 21:40 Blood Culture - Preliminary Blood SPECIMEN COLLECTED 09/19/22 21:38 Blood Culture - Preliminary Blood SPECIMEN COLLECTED A&P Assessment and plan (1) Altered mental status: (2) Rhabdomyolysis: (3) Alzheimer disease: (4) Dehydration: (5) Hypernatremia: Plan 77-year-old male with advancing dementia, needing assistance at baseline with his ADLs, brought in today because of altered mental status, being found down at home by his neighbors. Patient was last seen well 1 week ago, son last spoke to him on Sunday (today is Sunday) Currently patient is showing signs of significant dehydration, his mucous membrane and skin are extremely dry and parched. Hypernatremia, elevated lactate, rhabdomyolysis with elevated CK, high anion gap, mild transaminitis appear to be consistent with dehydration. Started patient on half-normal saline with 20 KCl at 100 cc an hour Monitor for improvement in mentation, electrolytes with hydration. Initially with elevated blood sugar of 350, high anion gap, positive ketones, there was concern for DKA and patient was brought to the ICU with anticipation of starting an insulin drip. However after receiving 10 units of IV insulin his blood sugar has trended down to 215. We are awaiting a repeat CMP to check on his gap. Likely that high anion gap and ketones are related to starvation and dehydration less concerning for DKA. Troponin series mildly elevated with baseline at 34, downtrending at 2 hours. Less likely ACS. No overt concerning changes on EKG. With elevated lactate, elevated Pro-Devante and CRP, concern for underlying infection, however currently UA is negative. Chest x-ray does not show any gross infiltrates. Liver ultrasound without signs of cholecystitis. No overt infectious source is currently evident. Blood cultures taken and pending. Star t empirically on ceftriaxone 1 g IV every 24 hours while infectious work-up is ongoing. Check respiratory viral panel Check x-rays of thoracolumbar spine and right shoulder as patient moans with minimal movement and appears to have a tender right shoulder. CT head negative for any acute intracranial events Insulin sliding scale for blood sugar management Case management consult for appropriate disposition planning. Patient's family has been considering long-term placement [facility] as patient is unable to care for himself at home. His son has recently moved into the area to take care of the patient, however with advancing dementia he does not think home living would be appropriate anymore. DNR/DNI DVT prophylaxis: Lovenox 40 every 24 hours Attestations Medical Necessity Statement*: Greater than 2 midnight admission is anticipated for severe dehydration, IV fluids, evaluation for underlying infection, appropriate disposition planning Coding Level of Care Code Acute Code for Chg Fwd Diagnoses Altered mental status R41.82 Rhabdomyolysis M62.82 Alzheimer disease G30.9; F02.80 Dehydration E86.0 Hypernatremia E87.0
[2022-09-20 06:12] LABS: Potassium 2.9 mmol/L (3.5-5.1)
[2022-09-20] MEDS: famotidine 20 mg/2 mL INJ IVP ×2 (06:22→18:00)
[2022-09-20] MEDS: lidocaine 1% 5 ML in potassium chloride premix 100 ML 26.25 ML IV (06:36)
[2022-09-20] MEDS: sodium chlor 0.45% +KCl 20 mEq 20 MEQ/1,000 ML BAG 100 MEQ IV ×2 (06:37→18:36)
[2022-09-20 07:33] LABS: Glucose Point of Care 256 mg/dL (70-110)
[2022-09-20] MEDS: enoxaparin 40 mg/0.4 mL Syringe SUBCUT (07:53)
[2022-09-20] MEDS: cefTRIAXone 1,000 MG in sodium chloride 0.9% (plus) 50 ML 100 MG IV (07:53)
[2022-09-20] MEDS: insulin lispro 100 unit/1 mL SUBCUT ×2 (07:54→11:32)
[2022-09-20 08:15] LABS: Adenovirus Not Detected (NOT DETECT); Chlamydia Pneumoniae Not Detected (NOT DETECT); Coronavirus 229E,HKU1,NL63,OC4 Not Detected (NOT DETECT); Human Metapneumovirus Not Detected (NOT DETECT); Human Rhinovirus/Enterovirus Not Detected (NOT DETECT); Influenza A Not Detected (NOT DETECT); Influenza A H1 Not Detected (NOT DETECT); Influenza A H1-2009 Not Detected (NOT DETECT); Influenza A H3 Not Detected (NOT DETECT); Influenza B Not Detected (NOT DETECT); Mycoplasma Pneumoniae Not Detected (NOT DETECT); Parainfluenza Virus Type 1 Not Detected (NOT DETECT); Parainfluenza Virus Type 2 Not Detected (NOT DETECT); Parainfluenza Virus Type 3 Not Detected (NOT DETECT); Parainfluenza Virus Type 4 Not Detected (NOT DETECT); Respiratory Syncytial Virus A Not Detected (NOT DETECT); Respiratory Syncytial Virus B Not Detected (NOT DETECT); SARS-COV-2 Not Detected (NOT DETECT)
[2022-09-20] MEDS: insulin glargine 100 units/1 mL 10 UNIT SUBCUT (10:31)
[2022-09-20 11:21] LABS: Blood Urea Nitrogen 38 mg/dL (8-23); Calcium 9.1 mg/dL (8.5-10.5); Carbon Dioxide 22 mmol/L (22-29); Creatinine Clr Calc Pharmacy 54.9284; Glucose 194 mg/dL (65-115)
[2022-09-20] MEDS: metoprolol tartrate 1 mg/1 mL SDV 5 mL 2.5 MG IVP ×4 (11:22→22:21)
[2022-09-20 11:24] LABS: D Dimer 1.93 ug/mIFEU (0-0.59)
[2022-09-20 11:32] LABS: Anion Gap 15.7 (5-19); Chloride 115 mmol/L (98-107); Osmolality Calculated 322 mOsm/kg (285-295); Potassium 3.7 mmol/L (3.5-5.1); Sodium 149 mmol/L (136-145)
[2022-09-20 12:31] LABS: Glucose Point of Care 173 mg/dL (70-110)
--- NOTE | 2022-09-20 12:59 | PC.SOCIAL ---
SDOH not completed due to AMS.
--- NOTE | 2022-09-20 14:41 | USCV_ITS ---
Geovanny James Age: 77 Gender: M : 1945 Exam Date: 09/20/2022 18:14 Ordering Phys: Jose Juan Burton MD Technologist: JOYCE [place]am [place] [facility] [place]ication: dementia, AMS, assess for DVT HISTORY: dementia, AMS, assess for DVT. Legs do not appear edematous or erythematous. PROCEDURES: Venous duplex imaging was performed in bilateral lower extremities. The following venous structures were evaluated: common femoral vein, profunda vein, proximal portion of the greater saphenous vein, superficial femoral vein, and the popliteal vein. In addition, the posterior tibial veins were evaluated. FINDINGS: Normal 2-D Doppler and augmentation and compressibility throughout the lower extremity venous structures. Additional imaging through the proximal calf veins also reveals no thrombus. Limited evaluation of the greater saphenous vein is patent with no thrombus. Complex cystic mass with low level echos and no vascularity measuring 3.5 x 1.1 cm in the right popliteal fossa. CONCLUSIONS No DVT bilateral lower extremities. Right popliteal fossa Ken's cyst. Dr. Erica Naylor DO (Electronically Signed) Final Date: 21 September 2022 07:52 S
--- NOTE | 2022-09-20 14:41 | CT_ITS ---
WS: [id number] CT CHEST ANGIOGRAPHY WITH REFORMATS HISTORY: assess for PE TECHNIQUE: Contiguous axial images are obtained through the chest during arterial injection of intrav enous contrast. Images are reconstructed to evaluate the pulmonary arteries. MIP imaging also reviewe d. All CT scans at [facility] use at least one of these dose optimization techniques: automat ed exposure control; mA and/or kV adjustment per patient size (includes targeted exams where dose is matched to clinical indication); or iterative reconstruction. CONTRAST: Omnipaque 350; 100 mL IV. DLP: 375.10 mGy.cm COMPARISON: None available. Good opacification of the pulmonary arteries. No pulmonary embolism. Normal-sized thoracic aorta with atherosclerotic plaque. Very mild enlargement of the heart chambers. No pericardial or pleural effus ions. LEFT lower lobe atelectasis. Mild shift of midline structures to the LEFT due to the atelectasis and volume loss. No pneumonia. No adenopathy. There are small hiatal hernia. Large gallstone measuring 14 mm in the neck of the gallbladder. Hepatic cyst measuring 2.9 x 1.4 cm a long the hepatic surface. Mild perinephric stranding. Mild LEFT adrenal hyperplasia. CT/CT angio chest PE protcl [id number] IMPRESSION: 1. No pulmonary embolism. 2. LEFT lower lobe atelectasis with resultant volume loss in the LEFT thorax. 3. Cholelithiasis. Large stone at the neck of the gallbladder. May be an entra pped stone. Consider surgical evaluation.
--- NOTE | 2022-09-20 14:52 | P.PN_ITS ---
Subjective Subjective: Denies pain, but unable to give history or ROS. Confused. Lethargic. Vitals/I&O/Wt Last Vital Signs Temp 99.2 F 09/20/22 08:00 Pulse 108 H 09/20/22 14:15 Resp 30 H 09/20/22 04:15 BP 157/83 09/20/22 14:15 Pulse Ox 97 09/20/22 14:15 O2 Del Method Room Air 09/20/22 09:07 O2 Flow Rate 4 09/20/22 08:00 09/19/22 09/20/22 09/20/22 22:59 06:59 14:59 Intake Total 850 / 850 207 / 207 Output Total 600 / 600 Balance 250 / 250 207 / 207 Weight last 48 hrs Weight 73.482 kg Weight 68.039 kg Physical Exam Const: GENERAL APPEARANCE: lethargic ORIENTATION/CONSCIOUSNESS: Yes confused and Yes lethargic HENMT: COMMON NORMALS: oropharynx normal Neck/C-Spine: COMMON NORMALS: no JVD Resp: COMMON NORMALS: normal respiratory effort and clear to auscultation bilaterally AUSCULTATION: clear to auscultation bilaterally Cardio: COMMON NORMALS: no JVD, regular rhythm, S1 normal heart sound present, S2 normal heart sound present and No murmurs present (Cardio) RHYTHM: regular rhythm HEART SOUNDS: S1 normal heart sound present and S2 normal heart sound present GI: COMMON NORMALS: Normal to inspection, nondistended, normoactive bowel sounds present, Soft to palpation and non-tender PALPATION: Yes Soft to palpation Extremity: COMMON NORMALS: no joint enlargement and no pedal edema Neuro: COMMON NORMALS: moves all extremities SENSORIUM/ORIENTATION: Yes lethargic Urinary Catheter Management: Smith: Cath Placed During This Visit: yes Reason for Continuing Indwelling Catheter: Accurate Measurement of Urinary Out put in Critically Ill Patients Urinary Catheter Date of Insertion: 09/20/22 Urinary Catheter Time of Insertion: 00:12 Data 09/19/22 21:38 09/20/22 10:53 Micro: Microbiology 09/19/22 21:40 Blood Culture - Preliminary Blood SPECIMEN COLLECTED 09/19/22 21:38 Blood Culture - Preliminary Blood SPECIMEN COLLECTED A&P Assessment and plan (1) Altered mental status: (2) Rhabdomyolysis: (3) Alzheimer disease: (4) Dehydration: (5) Hypernatremia: Plan 77-year-old male with advancing dementia, needing assistance at baseline with his ADLs, brought in today because of altered mental status, being found down at home by his neighbors. Patient was last seen well 1 week ago, son last spoke to him on Sunday (today is Sunday) Metabolic abnormalities: With acidosis, mild ketoacidosis with noted elevated anion gap, decreased serum bicarb. Started Lantus 10 units, continue sliding scale. Continue IV hydration. This appears to be improving. Recheck BMP requested. Gap appears down to 15.7. Bicarb up to 22. Continue glucose checks. Acute encephalopathy, suspected metabolic encephalopathy persists, however, discussed with his son cannot rule out other causes. CT scan without major CVA or other acute abnormality, but discussed cannot exclude possibly small CVA or other cause. Sinus tachycardia: Worsening sinus tachycardia this morning. D-dimer checked and noted abnormal. Discussed with son risk of CTA, assessment for PE. He is agreeable to proceed. Discussed additionally we are obtaining venous duplex ultrasound. Additionally was on carvedilol at home, had not been restarted, unclear that he will reliably take oral medications, for now we will add metoprolol 2.5 mg every 4 hours IV. Close monitoring with telemetry with IV beta-blockers. Risk of bradycardia, hypotension. Hypernatremia, Improving. Elevated lactate, rhabdomyolysis with elevated CK, high anion gap, mild transaminitis appear to be consistent with dehydration. Rhabdomyolysis: Follow-up CK. Negative respiratory viral panel Abdomen soft, nontender. Mobile gall stone on RUQ US. Visible on CTA, though with appearance at the neck of the GB. T. bili and alk phos are normal. He is afebrile, without leukocytosis. Follow-up liver parameters. Reassess abdominal exam. Noted x-rays of thoracolumbar spine and right shoulder. No fracture. Degenerative changes. CT head negative for any acute intracranial events Case management consult for appropriate disposition planning. Patient's family has been considering long-term placement at nursing home facility as patient is unable to care for himself at home. His son states he does not think home living would be appropriate anymore. Depending on recovery considers best case scenario may be assisted living, but not clear that he will reach this level. Discussed with his son concern also progression of cognitive decline with acute health events. DNR/DNI DVT prophylaxis: Lovenox 40 every 24 hours Discussed with his son. Attestations Medical Necessity Statement*: Continue admission for assessment and management of acute encephalopathy, metabolic derangements, rhabdomyolysis. Disposition planning and arrange Diagnoses Altered mental status R41.82 Rhabdomyolysis M62.82 Alzheimer disease G30.9; F02.80 Dehydration E86.0 Hypernatremia E87.0
[2022-09-20] MEDS: iohexol 350 mg/mL 500 mL Btl (per mL) IV (15:28)
--- NOTE | 2022-09-20 15:30 | PC.NURSE ---
Transfer Note Patient transferred to med-surg room 276 from ICU via bed. Handoff report given to TEAGAN Renee. Patient oriented to environment and equipment. Covering service notified. Orders reviewed and will continue to monitor. Family notified. All patient belongings transferred and placed at bedside. Patient transferred on 4LNC and is not alert/oriented at this time.
[2022-09-20 17:09] LABS: Glucose Point of Care 196 mg/dL (70-110)
[2022-09-20 20:09] LABS: Glucose Point of Care 206 mg/dL (70-110)
--- NOTE | 2022-09-20 21:06 | PC.NURSE ---
Patient NPO and unable to awaken enough to swallow at this time. Blood glucose 206 and protocol/order says to give [address] Silva notified. Ordered to not give this dose of Humalog.
[2022-09-21] VITALS (8 sets, daily range): BP systolic 125–197; BP diastolic 61–88; PULSE 71–108; RESP 16–22; TEMP 36.5–37.4; O2SAT 94–100
[2022-09-21 00:40] LABS: Glucose Point of Care 186 mg/dL (70-110)
[2022-09-21] MEDS: metoprolol tartrate 1 mg/1 mL SDV 5 mL 2.5 MG IVP ×2 (01:50→05:52)
[2022-09-21] MEDS: sodium chlor 0.45% +KCl 20 mEq 20 MEQ/1,000 ML BAG 100 MEQ IV (01:50)
--- NOTE | 2022-09-21 04:32 | PC.NURSE ---
Patient pulled IV out and pulled mcallister bag off of mcallister. Mcallister bag replaced. Complete linen change provided. New IV placed. Patient is verbal for the first time in my shift.
[2022-09-21 04:42] LABS: Basophils % 0.3 %; Hematocrit 37.8 % (42.0-52.0); Hemoglobin 12.6 g/dL (11.7-16.6); Lymphocytes # 0.5 10^3/uL (0.8-4.8); Lymphocytes % 9.1 %; Mean Corpuscular HGB Conc 33.3 g/dL (30.0-36.0); Mean Corpuscular Hemoglobin 30.6 pg (28.0-34.0); Mean Corpuscular Volume 91.7 fl (80-94); Mean Platelet Volume 9.4 fL (7.4-10.4); Monocytes # 0.4 10^3/uL (0.2-0.9); Monocytes % 6.8 %; Neutrophils # 4.75 10^3/uL (1.8-7.7); Neutrophils % 83.1 %; Nucleated Red Blood Cells % 0 %; Platelet Count 188 10^3/cmm (130-400); Red Blood Count 4.12 10^6/uL (4.1-5.3); Red Cell Distribution Width 13.9 % (12.1-15.1); White Blood Count 5.7 10^3/uL (4.0-10.0)
[2022-09-21 04:47] LABS: Glucose Point of Care 194 mg/dL (70-110)
[2022-09-21 04:51] LABS: Estmated Average Glucose 169; Hemoglobin A1C 7.5 % (4.0-6.0)
[2022-09-21 05:03] LABS: Alanine Aminotransferase 43 U/L (0-41); Albumin Level 3.1 g/dL (3.5-5.2); Alkaline Phosphatase 53 U/L (40-130); Anion Gap 15.4 (5-19); Aspartate Amino Transferase 53 U/L (0-40); Blood Urea Nitrogen 36 mg/dL (8-23); Calcium 9.5 mg/dL (8.5-10.5); Carbon Dioxide 24 mmol/L (22-29); Chloride 116 mmol/L (98-107); Glucose 180 mg/dL (65-115); Magnesium 2.2 mg/dL (1.7-2.3); Osmolality Calculated 327 mOsm/kg (285-295); Potassium 3.4 mmol/L (3.5-5.1); Sodium 152 mmol/L (136-145); Total Bilirubin 0.7 mg/dL (0.15-1.2); Total Protein 6.1 g/dL (6.6-8.7)
[2022-09-21 05:08] LABS: Slide Review Slide Review Perform
[2022-09-21 05:13] LABS: Lactic Sepsis W/Reflex 1.7 mmol/L (0.5-2.2)
[2022-09-21 05:23] LABS: Creatine Phosphokinase 937 U/L (39-308)
[2022-09-21] MEDS: famotidine 20 mg/2 mL INJ IVP (05:52)
[2022-09-21 08:17] LABS: Glucose Point of Care 186 mg/dL (70-110)
[2022-09-21] MEDS: insulin glargine 100 units/1 mL 10 UNIT SUBCUT (08:40)
[2022-09-21] MEDS: enoxaparin 40 mg/0.4 mL Syringe SUBCUT (08:40)
[2022-09-21] MEDS: cefTRIAXone 1,000 MG in sodium chloride 0.9% (plus) 50 ML 100 MG IV (08:40)
--- NOTE | 2022-09-21 11:07 | PC.CHAP ---
Pastoral Care Encounter/Spiritual Assessment Type of Contact [x] Declined master planner visit [] Patient/Family/Request visit [] Outpatient visit [] Follow-up visit [] Physician referral [] Code/Alert [] Routine visit [] Staff referral [] Actively dying [] Patient sleeping [] Family support [] [] Out of room [] Palliative care [] [] Receiving care in room [] Pre-surgical visit [] Trauma [] Long length of stay [] ICU visit [] Other: Relational/Emotional Strength [] Patient feels connected with others/family/visitors/staff [] Distress [] Loneliness/isolation [] Abandonment Spirituality of Patient [] Person of Vilma [] Attends Christian of their Vilma [] Believes in Prayer [] Reads Bible or Zoroastrian materials [] There are Spiritual issues to be addressed Flare Maker Interventions [] Prayer [] Active listening [] Non-anxious presence [] Spiritual/emotional support [] Crisis/trauma care [] Spiritual counseling [] Bereavement support [] Provided bereavement packet [] Provided Bible/devotional materials [] Provided toy/stuffed animal, coloring book to patient or family member [] Provided Communion [] Anointing/[place] [] Salvation [] Completed spiritual assessment [] Other: Impact on Illness or Injury [] Angry [] Fearful [] Anxious [] Often cries [] Exhaustion [] Unable to work [] Unable to attend religious [] Unable to walk/stand [] Unable to read [] Unable to drive [] Unable to eat/drink [] Unable to sleep [] Unable to be with family [] Patient intubated [] Other: Summary Declined master planner visit Time spent with patient 5 mins
[2022-09-21 12:00] LABS: Glucose Point of Care 208 mg/dL (70-110)
[2022-09-21] MEDS: carvedilol 6.25 mg Tablet PO (15:44)
[2022-09-21] MEDS: metroNIDAZOLE 500 MG Tablet PO ×2 (15:44→21:11)
[2022-09-21 16:02] LABS: Glucose Point of Care 171 mg/dL (70-110)
--- NOTE | 2022-09-21 16:33 | PM.PN ---
Subjective Subjective: He is alert today, sitting up in bed, eyes open, tracks, not oriented, unable to provide history, provides simple ROS. Denies pain. Pulled out his IV earlier. Vitals/I&O/Wt Last Vital Signs Temp 97.7 F 09/21/22 15:56 Pulse 100 09/21/22 15:56 Resp 16 09/21/22 15:56 BP 148/80 09/21/22 15:56 Pulse Ox 97 09/21/22 15:56 O2 Del Method Room Air 09/21/22 15:56 O2 Flow Rate 4 09/21/22 08:00 09/21/22 09/21/22 09/21/22 06:59 14:59 22:59 Intake Total 723.333 / 1930.333 50 / 50 1000 / 1050 Output Total 700 / 1200 400 / 400 350 / 750 Balance 23.333 / 730.333 -350 / -350 650 / 300 Weight last 48 hrs Weight 73.482 kg Weight 68.039 kg Physical Exam Const: COMMON NORMALS: alert; negative for patient oriented x3 ORIENTATION/CONSCIOUSNESS: Yes awake and Yes confused HENMT: COMMON NORMALS: oropharynx normal Neck/C-Spine: COMMON NORMALS: no JVD Resp: COMMON NORMALS: normal respiratory effort and clear to auscultation bilaterally AUSCULTATION: clear to auscultation bilaterally Cardio: COMMON NORMALS: no JVD, regular rhythm, S1 normal heart sound present, S2 normal heart sound present and No murmurs present (Cardio) RHYTHM: regular rhythm HEART SOUNDS: S1 normal heart sound present and S2 normal heart sound present GI: COMMON NORMALS: Normal to inspection, nondistended, normoactive bowel sounds present, Soft to palpation and non-tender PALPATION: Yes Soft to palpation Extremity: COMMON NORMALS: no joint enlargement and no pedal edema Neuro: COMMON NORMALS: moves all extremities; negative for patient oriented x3 SENSORIUM/ORIENTATION: Yes alert Urinary Catheter Management: Smith: Cath Placed During This Visit: yes Reason for Continuing Indwelling Catheter: Other Urinary Catheter Date of Insertion: 09/20/22 Urinary Catheter Time of Insertion: 00:12 Data 09/21/22 04:06 09/21/22 04:06 Micro: Microbiology 09/19/22 21:40 Blood Culture - Preliminary Blood NEGATIVE TO DATE 09/19/22 21:38 Blood Culture - Preliminary Blood NEGATIVE TO DATE A&P Assessment and plan (1) Altered mental status: (2) Rhabdomyolysis: (3) Alzheimer disease: (4) Dehydration: (5) Hypernatremia: Plan 77-year-old male with advancing dementia, needing assistance at baseline with his ADLs, brought in today because of altered mental status, being found down at home by his neighbors. Patient was last seen well 1 week ago, son last spoke to him on Sunday Gallbladder abnormality: Cholelithiasis, HIDA scan requested for additional assessment for cholecystitis although suspicion is lower, but with concerning findings on CT. Mobile gall stone on RUQ US. Visible on CTA, though with appearance at the neck of the GB. T. bili and alk phos are normal. He is afebrile, without leukocytosis. Follow-up liver parameters. Reassess abdominal exam. Discussing with his RN he had some confusion, as he pulled out his IV, Rocephin had to be stopped. Peripheral change empirically to Cipro Flagyl. Hypernatremia: Normal saline stopped, however, he has removed his IV, unable currently to give additional fluid. He is more alert and is able to take oral diet, so oral diet is resumed. Follow-up chemistry requested. Metabolic acidosis: Resolved. With acidosis, mild ketoacidosis with noted elevated anion gap, decreased serum bicarb. Continue Lantus 10 units, continue sliding scale. Continue IV hydration. This appears to be improving. Recheck BMP requested. Gap appears down to 15.7. Bicarb up to 22. Continue glucose checks. Acute encephalopathy, appears to be improving. He is more alert today. Unable to provide history due to dementia. Difficult to tell if some confusion so persistent or back to baseline. Did pull out his IV. Transition medications to oral. Suspected metabolic encephalopathy persists, however, discussed with his son cannot rule out other causes. CT scan without major CVA or other acute abnormality, but discussed cannot exclude possibly small CVA or other cause. Sinus tachycardia: Pulled out his IV. Stop IV metoprolol. Resume his home carvedilol DNR/DNI DVT prophylaxis: Lovenox 40 every 24 hours Discussed with his son. Attestations Medical Necessity Statement*: Continue admission for assessment management of acute encephalopathy, assessment for possible cholecystitis, assessment management of electrolyte abnormalities, optimization of blood pressure control. Post discharge planning and arrangements. Diagnoses Altered mental status R41.82 Rhabdomyolysis M62.82 Alzheimer disease G30.9; F02.80 Dehydration E86.0 Hypernatremia E87.0
[2022-09-21] MEDS: potassium chloride ER 20 mEq Tablet 40 MEQ PO (17:14)
[2022-09-21 20:37] LABS: Glucose Point of Care 289 mg/dL (70-110)
[2022-09-21] MEDS: insulin lispro 100 unit/1 mL SUBCUT (21:11)
[2022-09-21] MEDS: ciprofloxacin 500 mg Tablet PO (21:11)
[2022-09-21 21:38] LABS: Hepatitis B Core IgM Non-Reactive (Nonreactive); Hepatitis B Surface Antigen Non-Reactive (Nonreactive); Hepatitis C Virus Antibody Non-Reactive (Nonreactive)
--- NOTE | 2022-09-21 21:39 | PC.NURSE ---
Marylou in nuc med stated that patient needs to be NPO at midnight for his test in the morning.
[2022-09-21 23:00] LABS: Hepatitis A Antibody IgM Non-Reactive (Nonreactive)
[2022-09-22] VITALS (7 sets, daily range): BP systolic 156–184; BP diastolic 76–99; PULSE 62–89; RESP 16–20; TEMP 36.4–36.7; O2SAT 94–98
[2022-09-22 00:27] LABS: Glucose Point of Care 102 mg/dL (70-110)
[2022-09-22 04:17] LABS: Glucose Point of Care 77 mg/dL (70-110)
[2022-09-22 04:59] LABS: Basophils % 0.4 %; Eosinophils # 0.1 10^3/uL (0.0-0.8); Eosinophils % 0.8 %; Hematocrit 35.9 % (42.0-52.0); Lymphocytes # 0.8 10^3/uL (0.8-4.8); Lymphocytes % 10.4 %; Mean Corpuscular HGB Conc 33.4 g/dL (30.0-36.0); Mean Corpuscular Hemoglobin 30.9 pg (28.0-34.0); Mean Corpuscular Volume 92.5 fl (80-94); Mean Platelet Volume 9.3 fL (7.4-10.4); Monocytes # 0.5 10^3/uL (0.2-0.9); Monocytes % 6.9 %; Neutrophils # 5.92 10^3/uL (1.8-7.7); Neutrophils % 80.4 %; Nucleated Red Blood Cells % 0 %; Platelet Count 179 10^3/cmm (130-400); Red Blood Count 3.88 10^6/uL (4.1-5.3); Red Cell Distribution Width 13.8 % (12.1-15.1); White Blood Count 7.4 10^3/uL (4.0-10.0)
[2022-09-22 05:19] LABS: Alanine Aminotransferase 49 U/L (0-41); Albumin Level 2.8 g/dL (3.5-5.2); Alkaline Phosphatase 49 U/L (40-130); Anion Gap 11.3 (5-19); Aspartate Amino Transferase 56 U/L (0-40); Blood Urea Nitrogen 34 mg/dL (8-23); Calcium 9.4 mg/dL (8.5-10.5); Carbon Dioxide 28 mmol/L (22-29); Chloride 115 mmol/L (98-107); Globulin 3.1 g/dL (1.3-4.6); Glucose 83 mg/dL (65-115); Osmolality Calculated 319 mOsm/kg (285-295); Potassium 3.3 mmol/L (3.5-5.1); Sodium 151 mmol/L (136-145); Total Bilirubin 0.8 mg/dL (0.15-1.2); Total Protein 5.9 g/dL (6.6-8.7)
[2022-09-22 05:44] LABS: Glucose Point of Care 92 mg/dL (70-110)
--- NOTE | 2022-09-22 10:00 | NM_ITS ---
WS: [id number] NUCLEAR MEDICINE HIDA SCAN CLINICAL INFORMATION: assess for cholecystitis TECHNIQUE: Following intravenous administration of 8.3 mCi of technetium 99m mebrofenin, images of th e abdomen were obtained over the course of 60 minutes. Next, gallbladder ejection fraction was determ ined by obtaining preprandial and one-hour postprandial images of the gallbladder following oral violet stion of Ensure. COMPARISON: Ultrasound September 19, 2022 FINDINGS: Normal hepatic uptake at 5 minutes. Normal hepatic excretion. Normal common bile duct and small bowel activity.Gallbladder is visualized by 50 minutes. No evidence of acute cholecystitis. Gallbladder ejection fraction demonstrates no emptying at 52 minutes. NM/NM hepatobiliary w phar* [id number] IMPRESSION: 1. No gallbladder emptying at 52 minutes compatible with gallbladder dysfuncti on. Recommend correlation for chronic cholecystitis. 2. No evidence of acute cholecystitis. Normal filling of the gallbladder at 50 minutes. 3. Normal common bile duct and small bowel activity demonstrated.
--- NOTE | 2022-09-22 10:37 | PC.NURSE ---
This nurse received a phone call from nuclear medicine stating that the patient had ripped out his mcallister catheter during the scan.
[2022-09-22] MEDS: potassium chloride ER 20 mEq Tablet 40 MEQ PO (10:45)
[2022-09-22] MEDS: ciprofloxacin 500 mg Tablet PO ×2 (10:45→20:20)
[2022-09-22] MEDS: enoxaparin 40 mg/0.4 mL Syringe SUBCUT (10:45)
[2022-09-22] MEDS: insulin glargine 100 units/1 mL 10 UNIT SUBCUT (10:46)
[2022-09-22] MEDS: metroNIDAZOLE 500 MG Tablet PO ×3 (10:46→20:20)
[2022-09-22] MEDS: carvedilol 6.25 mg Tablet PO ×2 (10:46→17:29)
[2022-09-22] MEDS: dextrose 5% 1,000 ML 30 ML IV (10:49)
[2022-09-22 11:07] LABS: Glucose Point of Care 243 mg/dL (70-110)
[2022-09-22 16:48] LABS: Glucose Point of Care 160 mg/dL (70-110)
[2022-09-22] MEDS: insulin lispro 100 unit/1 mL SUBCUT ×2 (17:29→20:21)
[2022-09-22 20:00] LABS: Glucose Point of Care 199 mg/dL (70-110)
--- NOTE | 2022-09-22 21:30 | P.PN_ITS ---
Subjective Subjective: Returned from HIDA scan. A nuclear medicine he pulled out Smith. Small mount of blood was noted at urethral meatus, but has urinated. Denies being in pain or discomfort. Vitals/I&O/Wt Last Vital Signs Temp 97.6 F 09/22/22 19:28 Pulse 89 09/22/22 19:28 Resp 17 09/22/22 19:28 BP 158/82 09/22/22 19:28 Pulse Ox 95 09/22/22 19:28 O2 Del Method Room Air 09/22/22 19:28 O2 Flow Rate 4 09/21/22 20:00 09/22/22 09/22/22 09/22/22 06:59 14:59 22:59 Intake Total 120 / 120 580 / 700 Output Total 250 / 1150 Balance -250 / -100 120 / 120 580 / 700 Physical Exam Const: COMMON NORMALS: alert; negative for patient oriented x3 ORIENTATION/CONSCIOUSNESS: Yes awake HENMT: COMMON NORMALS: oropharynx normal Neck/C-Spine: COMMON NORMALS: no JVD Resp: COMMON NORMALS: normal respiratory effort and clear to auscultation bilaterally AUSCULTATION: clear to auscultation bilaterally Cardio: COMMON NORMALS: no JVD, regular rhythm, S1 normal heart sound present, S2 normal heart sound present and No murmurs present (Cardio) RHYTHM: regular rhythm HEART SOUNDS: S1 normal heart sound present and S2 normal heart sound present GI: COMMON NORMALS: Normal to inspection, nondistended, normoactive bowel sounds present, Soft to palpation and non-tender PALPATION: Yes Soft to palpation : OTHER: Small amount of dried blood at urethral meatus. Extremity: COMMON NORMALS: no joint enlargement and no pedal edema Neuro: COMMON NORMALS: moves all extremities; negative for patient oriented x3 SENSORIUM/ORIENTATION: Yes alert Urinary Catheter Management: Smith: Cath Placed During This Visit: yes, but has since been removed by the nurse Reason for Continuing Indwelling Catheter: Other Urinary Catheter Date of Insertion: 09/20/22 Urinary Catheter Time of Insertion: 00:12 Date Urinary Catheter Removed: 09/22/22 Time Urinary Catheter Discontinued: 10:59 Data 09/22/22 04:50 09/22/22 04:50 A&P Assessment and plan (1) Altered mental status: (2) Rhabdomyolysis: (3) Alzheimer disease: (4) Dehydration: (5) Hypernatremia: Plan 77-year-old male with advancing dementia, needing assistance at baseline with his ADLs, brought in today because of altered mental status, being found down at home by his neighbors. Patient was last seen well 1 week ago, son last spoke to him on Sunday Gallbladder abnormality: HIDA scan noted, no evidence of acute cholecystitis. Suspected chronic cholecystitis. Follow-up outpatient with surgery depending on goals of care. Follow-up liver parameters. Reassess abdominal exam. Stop antibiotics. Check procalcitonin. Hypernatremia: Without worsening but persists. Encourage oral hydration. If able to maintain IV, giving him low rate D5 infusion. Reassess chemistry. Metabolic acidosis: Resolved. With acidosis, mild ketoacidosis with noted elevated anion gap, decreased serum bicarb. Continue Lantus 10 units, continue sliding scale. Continue IV hydration. This appears to be improving. Recheck BMP requested. Gap appears down to 15.7. Bicarb up to 22. Continue glucose checks. Acute encephalopathy, appears to be improving. He is more alert today. Unable to provide history due to dementia. Difficult to tell if some confusion so persistent or back to baseline. Did pull out his IV. Transition medications to oral. Suspected metabolic encephalopathy persists, however, discussed with his son cannot rule out other causes. CT scan without major CVA or other acute abnormality, but discussed cannot exclude possibly small CVA or other cause. Traumatic removal of Smith: Pulled out Smith during HIDA scan. Noted small amount of blood at urethral meatus. Has urinated since then. Monitor for any further bleeding, requested bladder scans to monitor for any retention. Sinus tachycardia: Pulled out his IV. Resumed his home carvedilol DNR/DNI DVT prophylaxis: Lovenox 40 every 24 hours Attestations Medical Necessity Statement*: Continue admission for assessment management of acute encephalopathy, de-esca lation of antibiotics, reassessment of electrolyte abnormalities, post discharge planning and arrangements. Diagnoses Altered mental status R41.82 Rhabdomyolysis M62.82 Alzheimer disease G30.9; F02.80 Dehydration E86.0 Hypernatremia E87.0
[2022-09-23 00:04] LABS: Glucose Point of Care 80 mg/dL (70-110)
[2022-09-23 03:55] VITALS: BP 161/88; PULSE 83; RESP 16; TEMP 36.4; O2SAT 94
[2022-09-23 04:04] LABS: Glucose Point of Care 183 mg/dL (70-110)
[2022-09-23 05:31] LABS: Basophils % 0.6 %; Eosinophils # 0.2 10^3/uL (0.0-0.8); Eosinophils % 2.6 %; Hematocrit 39.5 % (42.0-52.0); Hemoglobin 13.1 g/dL (11.7-16.6); Lymphocytes # 0.9 10^3/uL (0.8-4.8); Lymphocytes % 13.5 %; Mean Corpuscular HGB Conc 33.2 g/dL (30.0-36.0); Mean Corpuscular Hemoglobin 30.3 pg (28.0-34.0); Mean Corpuscular Volume 91.4 fl (80-94); Mean Platelet Volume 9.6 fL (7.4-10.4); Monocytes # 0.6 10^3/uL (0.2-0.9); Monocytes % 9.6 %; Neutrophils # 4.72 10^3/uL (1.8-7.7); Neutrophils % 71.7 %; Nucleated Red Blood Cells % 0 %; Platelet Count 196 10^3/cmm (130-400); Red Blood Count 4.32 10^6/uL (4.1-5.3); Red Cell Distribution Width 13.6 % (12.1-15.1); White Blood Count 6.6 10^3/uL (4.0-10.0)
[2022-09-23 05:58] LABS: Alanine Aminotransferase 48 U/L (0-41); Albumin Level 2.8 g/dL (3.5-5.2); Alkaline Phosphatase 55 U/L (40-130); Aspartate Amino Transferase 44 U/L (0-40); Blood Urea Nitrogen 31 mg/dL (8-23); Calcium 9.4 mg/dL (8.5-10.5); Carbon Dioxide 27 mmol/L (22-29); Chloride 107 mmol/L (98-107); Globulin 3.3 g/dL (1.3-4.6); Glucose 179 mg/dL (65-115); Osmolality Calculated 311 mOsm/kg (285-295); Sodium 145 mmol/L (136-145); Total Bilirubin 0.7 mg/dL (0.15-1.2); Total Protein 6.1 g/dL (6.6-8.7)
[2022-09-23 06:12] LABS: Anion Gap 14.9 (5-19); Potassium 3.9 mmol/L (3.5-5.1)
[2022-09-23 08:00] VITALS: BP 184/78; PULSE 71; RESP 18; TEMP 36.9; O2SAT 96
[2022-09-23 08:38] LABS: Glucose Point of Care 179 mg/dL (70-110)
[2022-09-23] MEDS: insulin glargine 100 units/1 mL 10 UNIT SUBCUT (08:53)
[2022-09-23] MEDS: enoxaparin 40 mg/0.4 mL Syringe SUBCUT (08:53)
[2022-09-23] MEDS: carvedilol 6.25 mg Tablet PO ×2 (08:53→17:12)
[2022-09-23] MEDS: insulin lispro 100 unit/1 mL SUBCUT ×2 (08:58→12:45)
--- NOTE | 2022-09-23 10:42 | PC.SOCIAL ---
IMM Update pg 2 of IMM updated and reviewed w/ patient. Copy provided @ bedside and copy in chart dated, and initialed.
[2022-09-23 11:13] LABS: Glucose Point of Care 191 mg/dL (70-110)
[2022-09-23 12:00] VITALS: BP 182/99; PULSE 73; RESP 19; TEMP 36.7; O2SAT 97
[2022-09-23 16:00] VITALS: BP 168/98; PULSE 86; RESP 18; TEMP 36.8; O2SAT 97
[2022-09-23 16:04] LABS: Glucose Point of Care 111 mg/dL (70-110)
[2022-09-23] MEDS: acetaminophen 325 mg Tablet 650 MG PO (16:27)
--- NOTE | 2022-09-23 17:26 | PC.NURSE ---
This nurse received report on this patient and information given raised concern. This nurse reported through mandated reporting.
--- NOTE | 2022-09-23 17:37 | PM.DCS ---
Discharge Providers Date of Admission: 09/20/22 01:40 Date of Discharge: September 23, 2022 Attending Provider at Admission: Shanelle Yadav MD Attending Provider at Discharge: Jose Juan Burton Primary Care Provider: Erendira Jalloh MD Diagnoses at Discharge Discharge Diagnosis (1) Altered mental status: Status: Acute (2) Rhabdomyolysis: Status: Acute (3) Alzheimer disease: Status: Acute (4) Dehydration: Status: Acute (5) Hypernatremia: Status: Acute Reason for Visit Reason for Visit: AMS Brief History: Geovanny James is a 77 year old male with a past medical history of advancing dementia was brought to the emergency room today with AMS.? Patient is unable to contribute to any significant history.? Mainly obtained by talking to son. At baseline patient lives with his son, is able to ambulate, but 3 weeks ago fell out of bed, has had issues with advancing dementia over the past several months for which she visited with neurology in May 2022.? He needs assistance with several of his daily activities.? He is unlikely to be able to fix a meal by himself however is able to self-feed when food is arranged for him.? He is also able to take his pills from a pillbox at a baseline. He was last seen in his normal state 1 week ago on Sunday when his son left to go to [place].? He had been talking to his dad every day and last spoke to him on Sunday.? He seemed to be his usual self until Sunday.? Thereafter son was unable to reach him and sent the neighbor over to check on him. Mr. James was found down on the floor, confused, unable to answer any questions meaningfully, neighbor reported that he had not taken any of his medications.? He was extremely dehydrated.? Uncertain if he fell. Patient is unable to contribute in any meaningful way, answers yes to all questions. Not known if he had recently been having any fever chills cough etc. Hospital Course Hospital Course On presentation with noted metabolic abnormalities with metabolic acidosis, mild ketoacidosis, with positive ketones, dehydrated, received IV hydration, started on insulin while in the hospital, received Lantus, sliding scale insulin with resolution of DKA. A1c noted 7.5. Resuming on metformin at discharge. Continue consistent carbohydrate diet. Metabolic acidosis resolved. Acute encephalopathy on presentation multifactorial including metabolic secondary to above, on hospital transiently also hypernatremia for which received additional infusion of D5 with resolution. Initially empirically started on Rocephin, however, no obvious infection. Was noted to have cholelithiasis with small bowel stone on ultrasound, but with stone visible in the neck of the gallbladder on CT, raising concern of whether or not there may be cholecystitis. He remained afebrile, without leukocytosis, abdomen nontender, negative Erazo. Assessed by HIDA scan which showed chronic cholecystitis, no acute cholecystitis. He is referred for additional follow-up with general surgery for further consideration of options, depending also on his goals of care. While off unit he pulled out his Smith catheter with small amount of bleeding, but able to urinate subsequently. Bleeding so far has resolved. Monitor for urinary retention in which case replace Smith and refer to urology. His encephalopathy otherwise has resolved but she is alert, denies any complaints or discomfort. Pleasant, interactive, but unable to provide history. He is discharging to a facility for continued care. Physical Exam Const: COMMON NORMALS: alert; negative for patient oriented x3 ORIENTATION/CONSCIOUSNESS: Yes awake and Yes confused OTHER: Pleasant, conversant. Denies any pain or discomfort. In good spirits today. HENMT: COMMON NORMALS: oropharynx normal Neck/C-Spine: COMMON NORMALS: no JVD Resp: COMMON NORMALS: normal respiratory effort and clear to auscultation bilaterally AUSCULTATION: clear to auscultation bilaterally Cardio: COMMON NORMALS: no JVD, regular rhythm, S1 normal heart sound present, S2 normal heart sound present and No murmurs present (Cardio) RHYTHM: regular rhythm HEART SOUNDS: S1 normal heart sound present and S2 normal heart sound present GI: COMMON NORMALS: Normal to inspection, nondistended, normoactive bowel sounds present, Soft to palpation and non-tender PALPATION: Yes Soft to palpation : OTHER: No blood at urethral meatus. Extremity: COMMON NORMALS: no joint enlargement and no pedal edema Neuro: COMMON NORMALS: moves all extremities; negative for patient oriented x3 SENSORIUM/ORIENTATION: Yes alert Urinary Catheter Management: Smith: Cath Placed During This Visit: yes, but has since been removed by the nurse Reason for Continuing Indwelling Catheter: Other Urinary Catheter Date of Insertion: 09/20/22 Urinary Catheter Time of Insertion: 00:12 Date Urinary Catheter Removed: 09/22/22 Time Urinary Catheter Discontinued: 10:59 Discharge Data Studies Completed and Pending Completed Studies During Hospitalization Category Date Time Status CT cervical spin wo con* [id number] Stat Cat Scan 09/19/22 21:[address] head wo con* [id number] Stat Cat Scan 09/19/22 21:27 Completed CTA chest [CT angio chest PE protcl [id number]] Stat Cat Scan 09/20/22 14:41 Completed XR chest 1V portable [id number] Stat Exams 09/19/22 21:27 Completed XR lumbar spine 2-3V* [id number] Routine Exams 09/20/22 06:04 Completed XR shoulder RT min 2V* [id number] Routine Exams 09/20/22 06:04 Completed XR thoracic spine 2V [id number] Routine Exams 09/20/22 06:04 Completed NM hepatobiliary w phar* [id number] Routine Nuc Med 09/22/22 10:00 [place] [id number] Routine Ultrasound 09/20/22 14:41 Completed US gall bladder [id number] Stat Ultrasound 09/19/22 23:15 Completed Pending at discharge Category Date Time Status Blood Culture Stat Lab 09/19/22 21:40 Results Complete Blood Count w/Auto AM LABS Lab 09/24/22 04:00 Ordered Comprehensive Metabolic Panel AM LABS Lab 09/24/22 04:00 Ordered Radiology Impressions Cervical Spine CT 09/19/22 21:27 IMPRESSION: No acute abnormality of the cervical spine demonstrated. Chest X-Ray 09/19/22 21:27 IMPRESSION: No obvious acute consolidation. Suboptimal lung base assessment. Followup including lateral view may be obtained if clinically indicated. Head CT 09/19/22 21:27 IMPRESSION: No acute intracranial abnormality demonstrated. Gallbladder Ultrasound 09/19/22 23:15 IMPRESSION: 1. Gallbladder contains a 2.2 cm mobile calculus. The gallbladder wall is not well demonstrated, but may be thickened. There is no pericholecystic fluid demonstrated. No biliary dilatation demonstrated. 2. No focal hepatic abnormality demonstrated. Lumbar Spine X-Ray 09/20/22 06:04 IMPRESSION: 1. No acute fracture or malalignment. 2. Moderate degenerative changes. Straightening, slight dextroscoliosis. Shoulder X-Ray 09/20/22 06:04 IMPRESSION: 1. Degenerative changes. No fracture or dislocation. Thoracic Spine X-Ray 09/20/22 06:04 IMPRESSION: 1. No fracture or malalignment. Mild degenerative change. Chest CTA 09/20/22 14:41 IMPRESSION: 1. No pulmonary embolism. 2. LEFT lower lobe atelectasis with resultant volume loss in the LEFT thorax. 3. Cholelithiasis. Large stone at the neck of the gallbladder. May be an entrapped stone. Consider surgical evaluation. Hepatobiliary Scan Nuclear Medicine 09/22/22 10:00 IMPRESSION: 1. No gallbladder emptying at 52 minutes compatible with gallbladder dysfunction. Recommend correlation for chronic cholecystitis. 2. No evidence of acute cholecystitis. Normal filling of the gallbladder at 50 minutes. 3. Normal common bile duct and small bowel activity demonstrated. Laboratory Results WBC 6.6 10^3/uL (4.0-10.0) 09/23/22 04:15 RBC 4.32 10^6/uL (4.1-5.3) 09/23/22 04:15 Hgb 13.1 g/dL (11.7-16.6) 09/23/22 04:15 Hct 39.5 % (42.0-52.0) L 09/23/22 04:15 MCV 91.4 fl (80-94) 09/23/22 04:15 MCH 30.3 pg (28.0-34.0) 09/23/22 04:15 MCHC 33.2 g/dL (30.0-36.0) 09/23/22 04:15 RDW 13.6 % (12.1-15.1) 09/23/22 04:15 Plt Count 196 10^3/cmm (130-400) 09/23/22 04:15 MPV 9.6 fL (7.4-10.4) 09/23/22 04:15 Neut % (Auto) 71.7 % 09/23/22 04:15 Lymph % (Auto) 13.5 % 09/23/22 04:15 [place] % (Auto) 9.6 % 09/23/22 04:15 Eos % (Auto) 2.6 % 09/23/22 04:15 Baso % (Auto) 0.6 % 09/23/22 04:15 Neut # (Auto) 4.72 10^3/uL (1.8-7.7) 09/23/22 04:15 Lymph # (Auto) 0.9 10^3/uL (0.8-4.8) 09/23/22 04:15 [place] # (Auto) 0.6 10^3/uL (0.2-0.9) 09/23/22 04:15 Eos # (Auto) 0.2 10^3/uL (0.0-0.8) 09/23/22 04:15 Baso # (Auto) 0.0 10^3/uL (0.0-0.1) 09/23/22 04:15 Nucleated RBC % (auto) 0 % 09/23/22 04:15 Nucleated RBCs # 0.0 /100WBC 09/23/22 04:15 D-Dimer 1.93 ug/mIFEU (0-0.59) H 09/20/22 02:56 Specimen Type Arterial 09/19/22 22:31 Sample Site Radial, left 09/19/22 22:31 ABG pH 7.40 (7.35-7.45) 09/19/22 22:31 ABG pCO2 29.2 mmHg (35-45) L 09/19/22 22:31 ABG pO2 65.9 mmHg (80.0-100.0) L 09/19/22 22:31 ABG HCO3 17.9 mmol/L (22-26) L 09/19/22 22:31 ABG Base Excess -5.7 mmol/L (-2.0-2.0) L 09/19/22 22:31 Abhishek Test Pos 09/19/22 22:31 Hematocrit 43.1 % (42-52) 09/19/22 22:31 O2 Delivery Device Room air 09/19/22 22:31 Certified Orthoptist ID [email or web address] 09/19/22 22:31 Sodium 145 mmol/L (136-145) 09/23/22 04:15 Potassium 3.9 mmol/L (3.5-5.1) 09/23/22 04:15 Chloride 107 mmol/L (98-107) 09/23/22 04:15 Carbon Dioxide 27 mmol/L (22-29) 09/23/22 04:15 Anion Gap 14.9 (5-19) 09/23/22 04:15 BUN 31 mg/dL (8-23) H 09/23/22 04:15 Creatinine 0.8 mg/dL (0.7-1.2) 09/23/22 04:15 GFR Calculation Not Reportable 09/23/22 04:15 Glucose 179 mg/dL (65-115) H 09/23/22 04:15 POC Glucose 111 mg/dL (70-110) H 09/23/22 16:02 Estimat Average Glucose 169 09/21/22 04:06 Hemoglobin A1c 7.5 % (4.0-6.0) H 09/21/22 04:06 Calculated Osmolality 311 mOsm/kg (285-295) H 09/23/22 04:15 Lactic Acid 1.7 mmol/L (0.5-2.2) 09/21/22 04:06 Lactic Acid (Sepsis) 3.1 mmol/L (0.5-2.2) H 09/20/22 02:56 Calcium 9.4 mg/dL (8.5-10.5) 09/23/22 04:15 Magnesium 2.2 mg/dL (1.7-2.3) 09/21/22 04:06 Total Bilirubin 0.7 mg/dL (0.15-1.2) 09/23/22 04:15 AST 44 U/L (0-40) H 09/23/22 04:15 ALT 48 U/L (0-41) H 09/23/22 04:15 Alkaline Phosphatase 55 U/L (40-130) 09/23/22 04:15 Creatine Kinase 937 U/L (39-308) H* 09/21/22 04:06 Troponin T Baseline 34 ng/L (0-15) H 09/19/22 21:38 Troponin T 120 Minute 33.18 ng/L (0-15) H 09/19/22 23:52 Delta Troponin T -0.82 ABS# (0-10) L 09/19/22 23:52 Troponin T Hi Sens 6Hr 39.02 ng/L (0-15) H 09/20/22 02:56 Troponin T Hi Sens 6Hr Delta 5.02 ng/L (0-12) 09/20/22 02:56 C-Reactive Protein 282.5 mg/L (0.0-4.9) H 09/19/22 21:38 NT-Pro-B Natriuret Pep 784 pg/mL (0-450) H 09/19/22 21:38 Total Protein 6.1 g/dL (6.6-8.7) L 09/23/22 04:15 Albumin 2.8 g/dL (3.5-5.2) L 09/23/22 04:15 Globulin 3.3 g/dL (1.3-4.6) 09/23/22 04:15 Lipase 9 U/L (13-60) L 09/19/22 21:38 Procalcitonin 0.40 ng/mL (0-0.5) 09/23/22 04:15 TSH 0.53 uIU/mL (0.27-4.20) 09/19/22 21:38 Urine Color Yellow (Yellow) 09/20/22 01:53 Urine Appearance Clear (CLEAR) 09/20/22 01:53 Urine pH 5 (5-7) 09/20/22 01:53 Ur Specific [place] 1.020 (1.005-1.030) 09/20/22 01:53 Urine Protein 1+ (Negative) H 09/20/22 01:53 Urine Glucose (UA) 4+ (Normal) H 09/20/22 01:53 Urine Ketones 2+ (Negative) H 09/20/22 01:53 Urine Blood 3+ (Negative) H 09/20/22 01:53 Urine Nitrate Negative (Negative) 09/20/22 01:53 Urine Bilirubin Neg (Negative) 09/20/22 01:53 Urine Urobilinogen Norm mg/dL (Negative) 09/20/22 01:53 Ur Leukocyte Esterase Negative (Negative) 09/20/22 01:53 Urine RBC 0-4 /hpf (0-2) H 09/20/22 01:53 Urine WBC 0-4 /hpf (0-5) H 09/20/22 01:53 Ur Squamous Epith Cells 0-4 /hpf (0-5) H 09/20/22 01:53 Amorphous Sediment Not Reportable 09/20/22 01:53 Urine Bacteria Trace /hpf (NONE) 09/20/22 01:53 Hyaline Casts Rare /lpf 09/20/22 01:53 Nasal Influ A H1 2008 PCR Not detected (NOT DETECT) 09/20/22 06:16 Salicylates < 0.3 mg/dL (3-10) L 09/19/22 21:38 Acetaminophen < 5.0 ug/mL (10-30) L 09/19/22 21:38 Ethyl Alcohol < 10 mg/dL (0-10) 09/19/22 21:38 Serum Ketones Positive (Negative) H 09/19/22 21:38 Adenovirus (PCR) Not detected (NOT DETECT) 09/20/22 06:16 C. pneumoniae DNA (PCR) Not detected (NOT DETECT) 09/20/22 06:16 Coronavirus 229E (PCR) Not detected (NOT DETECT) 09/20/22 06:16 Hepatitis A IgM Ab Non-reactive (Nonreactive) 09/21/22 17:18 Hep Bs Antigen Non-reactive (Nonreactive) 09/21/22 17:18 Hep B Core IgM Ab Non-reactive (Nonreactive) 09/21/22 17:18 Hepatitis C Antibody Non-reactive (Nonreactive) 09/21/22 17:18 Human Metapneumovir PCR Not detected (NOT DETECT) 09/20/22 06:16 Influenza A (H1) PCR Not detected (NOT DETECT) 09/20/22 06:16 Influenza A (H3) PCR Not detected (NOT DETECT) 09/20/22 06:16 Influenza Type A (PCR) Not detected (NOT DETECT) 09/20/22 06:16 Influenza Type B (PCR) Not detected (NOT DETECT) 09/20/22 06:16 M. pneumoniae (PCR) Not detected (NOT DETECT) 09/20/22 06:16 Parainfluenza 1 (PCR) Not detected (NOT DETECT) 09/20/22 06:16 Parainfluenza 2 (PCR) Not detected (NOT DETECT) 09/20/22 06:16 Parainfluenza 3 (PCR) Not detected (NOT DETECT) 09/20/22 06:16 Parainfluenza 4 (PCR) Not detected (NOT DETECT) 09/20/22 06:16 RSV Type A (PCR) Not detected (NOT DETECT) 09/20/22 06:16 RSV Type B (PCR) Not detected (NOT DETECT) 09/20/22 06:16 Entero/Rhino (PCR) Not detected (NOT DETECT) 09/20/22 06:16 SARS-CoV-2 (PCR) Not detected (NOT DETECT) 09/20/22 06:16 Vitals Last Vital Signs Temp 98.3 F 09/23/22 16:00 Pulse 86 09/23/22 16:00 Resp 18 09/23/22 16:00 BP 168/98 09/23/22 16:00 Pulse Ox 97 09/23/22 16:00 O2 Del Method Room Air 09/23/22 12:00 O2 Flow Rate 4 09/21/22 20:00 Discharge Plan Discharge Patient Disposition: Xfer SNF Condition: Stable Prescriptions: Continued atorvastatin 40 mg tablet 40 mg PO DAILY losartan 100 mg tablet 100 mg PO DAILY metformin 1,000 mg tablet 1,000 mg PO BID carvedilol 6.25 mg tablet 6.25 mg PO BID potassium chloride 10 mEq tablet extended release 10 meq PO DAILY sertraline 25 mg tablet 25 mg PO DAILY memantine 10 mg tablet 10 mg PO BID Discharge Orders: Discharge Order (Routine); Ordered 09/23/22 Ordered By: Jose Juan Burton Referrals: [facility] [Provider Group] - 2 weeks (Chronic cholecystitis, cholelithiasis) Erendira Jalloh MD [Primary Care Provider] - 4-7 days (Please call Sunday to schedule your followup appointment.) Discharge Diet: Diabetic Activity Restrictions/Additional Instructions: Follow up with surgery for assessment of chronic cholecystitis, cholelithiasis. Follow up chemistry for sodium after transient hypernatremia and mild DKA. Do not limit sodium intake. Monitor for any urine retention over the next week. If retention noted re-insert Smith, follow up with urology. Monitor blood glucose. DM diet. Continue to optiumize blood pressure control. Fall precautions. Discharge Attestations Time Spent in Discharge Care*: greater than 30 min Quality Metrics Clinical Quality Measures [ No reported AMI, CVA or VTE this stay] Coding Level of Care Code Acute Code for Chg Fwd Diagnoses Altered mental status R41.82 Rhabdomyolysis M62.82 Alzheimer disease G30.9; F02.80 Dehydration E86.0 Hypernatremia E87.0
[2022-09-23 20:00] VITALS: BP 136/73; PULSE 71; RESP 17; TEMP 36.8; O2SAT 94
[2022-09-23 20:00] LABS: Glucose Point of Care 157 mg/dL (70-110)
--- NOTE | 2022-09-23 20:23 | PC.NURSE ---
EMS picked up patient at 2014, [facility] was called to let them know patient is on the way. Belongings were sent with EMS.
[2022-09-23 20:25] VITALS: BP 136/73; PULSE 71; RESP 17; TEMP 36.8; O2SAT 94
== END 2022-09-23 20:15 | disposition skilled nursing facility (03) | DRG 637 ==
LOC: ER 09-20 00:38 → ICU 09-20 01:40 → MEDSURG 09-20 15:26
PROVIDERS: Admitting Provider Student in an Organized Health Care Education/Training Program; Emergency Provider Emergency Medicine; PCP Internal Medicine; Visit Provider Internal Medicine
DX: E11.10 Type 2 diabetes mellitus with ketoacidosis without coma (principal); G93.41 Metabolic encephalopathy; E87.0 Hyperosmolality and hypernatremia; M62.82 Rhabdomyolysis; G30.9 Alzheimer's disease, unspecified; F02.80 Dementia in other diseases classified elsewhere, unspecified severity, without behavioral disturbance, psychotic disturbance, mood disturbance, and anxiety; E86.0 Dehydration; K80.20 Calculus of gallbladder without cholecystitis without obstruction; Z79.84 Long term (current) use of oral hypoglycemic drugs; Z85.46 Personal history of malignant neoplasm of prostate; Z66 Do not resuscitate; M71.21 Synovial cyst of popliteal space [Baker], right knee
CPT/HCPCS: 36415; 36416; 36600; 51702; 51798; 70450; 71045; 71275; 72070; 72100; 72125; 73030; 76705; 78227; 80048; 80053; 80074; 80307; 81001; 82009; 82550; 82803; 82962; 83036; 83605; 83690; 83735; 83880; 84145; 84443; 84484; 85025; 85378; 86140; 87040; 87486; 87581; 87633; 93005; 93970; 96365; 96372; 96375; 96376; 99285; A9537; J0696; J1650; J1815; J2543; J3475; J3480; J3490; J7030; J7070; Q3014; Q9967